=== PATIENT | male | born 1970 | race Caucasian/White ===

== ENCOUNTER 2016-02-10 03:52 | Inpatient (IN) | payer OTHER ==
[2016-02-10] MEDS ORDERED: ASPIRIN 81 MG CHEW PO STA (04:23)
[2016-02-10] MEDS ORDERED: MAG HYDROX/AL HYDROX/SIMETH 30 ML, HYOSCYAMINE ELIXIR 10 ML, CIMETIDINE HCL 300 MG, LID... PO STA ×4 (04:23)
[2016-02-10] MEDS ORDERED: ENOXAPARIN 100 MG/ML SYRINGE SQ STA (04:24)
[2016-02-10] MEDS ORDERED: NITROGLYCERIN SL TABS 0.4 MG TAB SUBLINGUAL STA (04:24)
[2016-02-10] MEDS ORDERED: NITROGLYCERIN OINT 1 INCH/GM PACKET TOPICAL STA (04:25)
--- NOTE | 2016-02-10 04:32 | XR ---
EXAMINATION TYPE: XR chest 1V portable DATE OF EXAM: 02/10/2016 4:28 AM COMPARISON: 04/06/2012 HISTORY: Chest pain TECHNIQUE: Single frontal view of the chest is obtained. FINDINGS: Heart and mediastinum are normal. Lungs are clear. Diaphragm is normal. Bony thorax and so ft tissues appear normal. IMPRESSION: Normal chest. There is improved inspiration compared to last exam.
[2016-02-10 04:34] LABS: Basophils % (A) 0 %; CH 31.3; CHCM 33.7; Eosinophils # (A) 0.3 k/uL (0-0.7); Eosinophils % (A) 2 %; HCT 43.8 % (39.0-53.0); HDW 2.17; HGB 14.7 gm/dL (13.0-17.5); Luc # (Auto) 0.19; Luc % (Auto) 2; Lymphocytes # (A) 2.9 k/uL (1.0-4.8); Lymphocytes % (A) 27 %; MCH 31.2 pg (25.0-35.0); MCHC 33.5 g/dL (31.0-37.0); MCV 93.1 fL (80.0-100.0); Mean Platelet Volume 7.4; Monocytes # (A) 0.8 k/uL (0-1.0); Monocytes % (A) 7 %; Neutrophils # (A) 6.8 k/uL (1.3-7.7); Neutrophils % (A) 62 %; RBC 4.71 m/uL (4.30-5.90); RDW 13.4 % (11.5-15.5); WBC (Perox) 10.74
[2016-02-10 04:49] LABS: ALT 29 U/L (21-72); AST 24 U/L (17-59); Alkaline Phosphatase 65 U/L (38-126); Amylase 57 U/L (30-110); Anion Gap 12 mmol/L; Blood Urea Nitrogen 20 mg/dL (9-20); Calcium 9.8 mg/dL (8.4-10.2); Carbon Dioxide 25 mmol/L (22-30); Chloride 104 mmol/L (98-107); Glucose 136 mg/dL (74-99); Magnesium 1.8 mg/dL (1.6-2.3); Non-African American GFR(MDRD) >60 (>60 ml/min/1.73 sqM); Potassium 4.1 mmol/L (3.5-5.1); Sodium 141 mmol/L (137-145); Total Bilirubin 0.3 mg/dL (0.2-1.3); Total Protein 6.8 g/dL (6.3-8.2)
--- NOTE | 2016-02-10 06:23 | ED ---
[id number] PAIN Time Seen by Provider: 02/10/16 04:01 Source: patient, family, RN notes reviewed Mode of arrival: ambulatory Limitations: no limitations - History of Present Illness Initial Comments: This patient is a 45-year-old man who presents with substernal chest pain that started tonight. Patient states that he had been seen here 2 days ago for similar episode, was admitted and then left AGAINST MEDICAL ADVICE the following afternoon. He reports that while he was here one of his tests come back abnormal but he does not recall which. The patient is describing his pain as being constant, aching, without worsening or relieving factors. MD Complaint: chest pain Onset/Timin -: hour(s) Onset: during rest Pain Location: substernal Pain Radiation: neck Severity: moderate Quality: aching Consistency: constant Improves With: nothing Worsens With: nothing - Related Data Home Medications Medication Instructions Recorded Confirmed No Known Home Medications [No 02/08/16 02/10/16 Known Home Medications] Allergies Allergy/AdvReac Type Severity Reaction Status Date / Time morphine AdvReac Chest Pain Verified 02/10/16 07:13 Review of Systems ROS Statement: Those systems with pertinent positive or pertinent negative responses have been documented in the HPI. ROS Other: All systems not noted in ROS Statement are negative. Constitutional: Denies: fever, chills Respiratory: Denies: cough, dyspnea, wheezes Cardiovascular: Reports: chest pain. Denies: palpitations, edema, syncope Genitourinary: Denies: urgency, dysuria, frequency Musculoskeletal: Denies: back pain Skin: Denies: rash Neurological: Denies: headache, weakness, numbness EKG Findings - EKG Results: EKG: interpreted by ERMD, sinus rhythm (Rate 83 bpm), normal axis, normal QRS, normal ST/T Past Medical History Past Medical History: CVA/TIA, Hypertension Additional Past Medical History / Comment(s): STATES HAD TIA 2 YRS AGO. doctor watching "spot" in his rt lung. DEGENERATIVE DISC DX LUMBAR SPINE,"borderline high BP", hx ulcer History of Any Multi-Drug Resistant Organisms: None Reported Past Surgical History: Hernia Repair Additional Past Surgical History / Comment(s): zion hernia surgery as Past Anesthesia/Blood Transfusion Reactions: No Reported Reaction Past Psychological History: Bipolar, Depression Smoking Status: Current every day smoker Past Alcohol Use History: Rare Additional Past Alcohol Use History / Comment(s): . Past Drug Use History: None Reported - Past Family History Mother Family Medical History: No Reported History General Exam Limitations: no limitations General appearance: alert, in no apparent distress Head exam: Present: atraumatic, normocephalic Eye exam: Present: normal appearance. Absent: scleral icterus, conjunctival injection Neck exam: Present: normal inspection, full ROM Respiratory exam: Present: normal lung sounds bilaterally. Absent: respiratory distress, wheezes, rales, rhonchi, stridor Cardiovascular Exam: Present: regular rate, normal rhythm, normal heart sounds. Absent: systolic murmur, diastolic murmur, rubs, gallop GI/Abdominal exam: Present: soft. Absent: distended, tenderness, guarding, mass Extremities exam: Present: normal inspection, normal capillary refill. Absent: pedal edema, calf tenderness Back exam: Present: normal inspection. Absent: CVA tenderness (R), CVA tenderness (L) Neurological exam: Present: alert Skin exam: Present: warm, dry, intact, normal color. Absent: rash, cyanosis, diaphoretic, erythema, petechiae, pallor, mottled Course Vital Signs 02/10/16 02/10/16 02/10/16 03:55 04:00 04:36 Temperature 98 F Pulse Rate 113 H 98 Pulse Rate [ 85 Right Radial] Respiratory 20 18 Rate Blood Pressure 148/95 135/117 O2 Sat by Pulse 100 98 Oximetry 02/10/16 02/10/16 02/10/16 04:56 05:28 05:59 Temperature Pulse Rate 81 90 85 Pulse Rate [ Right Radial] Respiratory 18 18 18 Rate Blood Pressure 122/80 128/95 124/85 O2 Sat by Pulse 98 98 98 Oximetry 02/10/16 02/10/16 06:45 08:55 Temperature Pulse Rate 59 L 69 Pulse Rate [ Right Radial] Respiratory 18 18 Rate Blood Pressure 109/67 116/76 O2 Sat by Pulse 98 98 Oximetry Chest Pain MDM - MDM Review of the patient's chart reveals that he did have a mild elevation of his troponin last time at 0.5. Given this and the recurrence of his symptoms, with the ER risk factors of smoking, will admit patient to have cardiology consult and stress versus heart cath. Disposition Clinical Impression: Chest pain Disposition: ADMITTED IP TO THIS HOSP Condition: Fair
[2016-02-10] MEDS ORDERED: NITROGLYCERIN SL TABS 0.4 MG TAB SUBLINGUAL PRN ×3 (07:00→17:45)
[2016-02-10] MEDS ORDERED: NICOTINE 21MG/24HR PATCH TRANSDERM STA (07:05)
[2016-02-10] MEDS ORDERED: KETOROLAC 30 MG/ML 1 ML VIAL IVP STA (07:06)
[2016-02-10] MEDS: SODIUM CHLORIDE 0.9% 1,000 ML IV SCH ×2 (08:52→19:14)
[2016-02-10 11:38] LABS: Creatine Kinase MB 5.1 ng/mL (0.0-2.4); Troponin I 0.629 ng/mL (0.000-0.034)
[2016-02-10] MEDS ORDERED: ASPIRIN 325 MG TAB PO STA (13:29)
[2016-02-10] MEDS ORDERED: ALPRAZolam 0.25 MG TAB PO PRN (13:29)
[2016-02-10] MEDS ORDERED: ALPRAZolam 0.5 MG TAB PO PRN (13:29)
[2016-02-10] MEDS ORDERED: ATORVASTATIN 80 MG TAB PO STA (13:29)
[2016-02-10] MEDS ORDERED: SODIUM CHLORIDE 0.9% 1,000 ML in EMPTY BAG 1 BAG IV ONE (13:29)
[2016-02-10] MEDS: METOPROLOL TARTRATE 25 MG TAB PO SCH ×2 (15:46→20:31)
[2016-02-10] MEDS ORDERED: LIDOCAINE 2% INJ 20 MG/ML (20 ML MDV) ONE (16:04)
[2016-02-10] MEDS ORDERED: diphenhydrAMINE 50 MG/ML 1 ML VIAL ONE (16:06)
[2016-02-10] MEDS ORDERED: fentaNYL (PF) 50 MCG/ML 2 ML AMP ONE (16:06)
[2016-02-10] MEDS ORDERED: HEPARIN SODIUM 1,000 UNIT/ML VIAL ONE (16:14)
[2016-02-10] MEDS ORDERED: SODIUM CHLORIDE 0.9% (PF) 10 ML VIAL ONE (16:14)
[2016-02-10] MEDS ORDERED: VERAPAMIL 2.5 MG/ML 2 ML AMP ONE (16:14)
[2016-02-10] MEDS ORDERED: IV FLUID CONTINUATION 100 ML IV ONE (16:20)
[2016-02-10] MEDS ORDERED: diphenhydrAMINE 50 MG/ML 1 ML VIAL IVP ONE (16:24)
[2016-02-10] MEDS ORDERED: fentaNYL (PF) 50 MCG/ML 2 ML AMP IV ONE (16:27)
[2016-02-10] MEDS ORDERED: SODIUM CHLORIDE 0.9% 1,000 ML IV ONE (16:30)
[2016-02-10] MEDS ORDERED: MIDAZOLAM 2 MG/2 ML VIAL ONE (16:35)
[2016-02-10] MEDS ORDERED: MIDAZOLAM 2 MG/2 ML VIAL IV ONE (16:50)
[2016-02-10] MEDS ORDERED: LIDOCAINE 2% INJ 20 MG/ML SQ ONE (16:56)
[2016-02-10] MEDS ORDERED: VERAPAMIL SYRINGE (5 MG/10 ML) INTRAARTER ONE (16:58)
[2016-02-10] MEDS ORDERED: BIVALIRUDIN BOLUS 250 MG/50 ML IV ONE (17:03)
[2016-02-10] MEDS ORDERED: BIVALIRUDIN 250 MG in SODIUM CHLORIDE 0.9% 50 ML IV ONE (17:04)
[2016-02-10] MEDS ORDERED: CLOPIDOGREL 75 MG TAB ONE (17:09)
[2016-02-10] MEDS ORDERED: CLOPIDOGREL 75 MG TAB PO ONE (17:14)
[2016-02-10] MEDS: NITROGLYCERIN 1000MCG/10ML SYRINGE INTRAARTER ONE ×2 (17:14→17:22)
[2016-02-10] MEDS ORDERED: IOHEXOL 300 MG/ML 100 ML BOTTLE INJ ONE (17:30)
[2016-02-10] MEDS ORDERED: MAG HYDROX/AL HYDROX/SIMETH 30 ML CUP PO PRN (17:45)
[2016-02-10] MEDS ORDERED: RX INFO: IV CONTRAST WAS GIVEN 1 EACH MISC MISCELLANE PRN (17:45)
[2016-02-10] MEDS ORDERED: ZOLPIDEM 5 MG TAB PO PRN (17:45)
[2016-02-10] MEDS ORDERED: SODIUM CHLORIDE 0.9% 1,000 ML IV SCH (17:45)
[2016-02-10] MEDS ORDERED: ENOXAPARIN 100 MG/ML SYRINGE SQ SCH (18:00)
[2016-02-10 18:56] LABS: Creatine Kinase MB 6.9 ng/mL (0.0-2.4); Troponin I 1.08 ng/mL (0.000-0.034)
--- NOTE | 2016-02-10 22:54 | CONS ---
DATE OF CONSULTATION: 02/10/2016 Mr. Nina is a 45-year-old male who was admitted to the hospital this past Wednesday with symptoms of chest pain, had mild elevation of troponin. Subsequently patient signed AMA, went home and had another episode of severe chest discomfort yesterday, came into the emergency room and was admitted. He is feeling pain-free at this time. He had discomfort again at rest, not related to any physical activity. He has had mild dyspnea. He has no dizziness. No palpitation. No syncope. He has no history of PND, orthopnea, or peripheral edema. His medications at time of presentation were none. His coronary risk factors are remarkable for the history of smoking. He is nondiabetic. No documented hyperlipidemia. There is a question of hypertension in the past. REVIEW OF SYSTEMS: RESPIRATORY SYSTEM: He has no recent wheezing. He has chronic tobacco use and some dyspnea. GI: No recent GI bleeding. No peptic ulcer disease. SYSTEM: No dysuria or hematuria. NERVOUS SYSTEM: No stroke or seizure. Of note, during his last admission he had an echocardiogram that revealed preserved left ventricular size systolic function and his troponin initially was less than 0.0172, subsequent one was 0.055. On presentation today his first one was less than 0.012 and subsequently 0.629. PHYSICAL EXAMINATION: He is a 45-year-old male, alert, oriented, in no apparent distress. Blood pressure 104/70 with a heart rate in the 60s. HEAD: Normocephalic. EYES: Sclerae anicteric. NECK: Good upstroke. No bruit. No jugular venous distention. LUNGS: Clear to auscultation. HEART: Regular rate and rhythm. S1, S2, no S3, no rub. ABDOMEN: Soft, nontender, positive bowel sounds. No organomegaly. EXTREMITIES: No edema. Intact distal pulses. EKG revealed sinus mechanism, normal axis and intervals. QS in leads III. Lab data revealed a hemoglobin of 14.7, troponin of 0.629. BUN and creatinine 20 and 1.0. IMPRESSION: 1. Non- ST segment elevation myocardial infarction. 2. Chronic tobacco use. RECOMMENDATIONS: In view of the recurrent symptoms of proceed with coronary angiography to assess his status and guide his treatment. The rationale behind the procedure as well as risks and complications were discussed with the patient who is in full understanding and agreement. Thank you for this consult. We will follow with you.
[2016-02-11 03:12] VITALS: RESP 18
[2016-02-11] MEDS: SODIUM CHLORIDE 0.9% 1,000 ML IV SCH ×2 (06:52→12:10)
[2016-02-11 08:04] LABS: Anion Gap 11 mmol/L; Blood Urea Nitrogen 15 mg/dL (9-20); Calcium 8.8 mg/dL (8.4-10.2); Carbon Dioxide 23 mmol/L (22-30); Chloride 108 mmol/L (98-107); Cholesterol 178 mg/dL (<200); Glucose 92 mg/dL (74-99); HDL Cholesterol 37 mg/dL (40-60); Non-African American GFR(MDRD) >60 (>60 ml/min/1.73 sqM); Potassium 4.6 mmol/L (3.5-5.1); Sodium 142 mmol/L (137-145); Triglycerides 106 mg/dL (<150)
[2016-02-11] MEDS: METOPROLOL TARTRATE 25 MG TAB PO SCH (08:20)
[2016-02-11 08:40] LABS: CH 30.3; CHCM 30.6; HCT 43.8 % (39.0-53.0); HDW 2.25; HGB 14.2 gm/dL (13.0-17.5); Hypochromasia Slight; MCH 32.2 pg (25.0-35.0); MCHC 32.4 g/dL (31.0-37.0); Mean Platelet Volume 8.1; RDW 13.6 % (11.5-15.5); WBC 7.6 k/uL (3.8-10.6); WBC (Perox) 8.18
[2016-02-11 08:56] LABS: MCV 99.6 fL (80.0-100.0)
[2016-02-11] MEDS ORDERED: INFLUENZA VACCINE (3YR+) 60 MCG/0.5 ML SYRINGE IM ONE (09:00)
[2016-02-11] MEDS ORDERED: ASPIRIN 325 MG TAB PO SCH ×2 (09:00)
[2016-02-11] MEDS ORDERED: NICOTINE 21MG/24HR PATCH TRANSDERM SCH (09:00)
[2016-02-11 10:39] LABS: Add Differential Manual Differential
[2016-02-11 10:42] LABS: Nucleated Red Blood Cells 0 /100 WBC (0-0); Total Cells Counted 100
--- NOTE | 2016-02-11 11:28 | HP ---
DATE OF ADMISSION: The chief complaint is chest pain. HISTORY OF PRESENT ILLNESS: This 45-year-old gentleman with a past history of nicotine dependence, history of CVA, TIA, hypertension, CAD being followed by Dr. Ken Willis in the outpatient setting, recently admitted with chest pain. The patient was suspected to have acute non-ST elevation myocardial infarction but the patient left the hospital AGAINST MEDICAL ADVICE. Currently, the patient is complaining of chest pain, low part of the chest pain, again, which is radiating into both arms and neck and patient came to [facility], admitted for further evaluation and treatment. The troponin is elevated to 1.080 and patient underwent cardiac catheterization and RCA stenting and patient being closely monitored. There is no history of fever, rigor, or chills. No history of any headache, loss of consciousness or seizures. PAST MEDICAL HISTORY: History of CVA, TIA, hypertension, history of CAD stent, history of hernia repair. MEDICATIONS: None. ALLERGIES: MORPHINE. FAMILY HISTORY: No history of heart disease or strokes in the family. SOCIAL HISTORY: History of smoking, no history of alcohol intake. REVIEW OF SYSTEMS: ENT: No diminished vision or hearing. CARDIOVASCULAR SYSTEM: As mentioned earlier. RESPIRATORY: As mentioned earlier. GI: No nausea. : No dysuria. NERVOUS SYSTEM: No numbness or weakness. ALLERGY/IMMUNOLOGY: No asthma or hay fever. MUSCULOSKELETAL: As mentioned earlier. HEMATOLOGY: No history of anemia. ENDOCRINE: No history of diabetes mellitus or hypothyroidism. CONSTITUTIONAL: As mentioned earlier. DERMATOLOGY: Negative. PSYCHIATRY: As mentioned earlier. PHYSICAL EXAM: Patient is alert and oriented x3. Pulse is 77, blood pressure 117/70, respirations 16, temperature 97.4, pulse ox 96% on room air. HEENT: Conjunctivae normal. NECK: No jugular venous distension. CARDIOVASCULAR SYSTEM: S1, S2. RESPIRATORY: Breath sounds diminished at the bases. No rhonchi, no crackles. Abdomen is soft, nontender. No mass palpable. EXTREMITIES: Legs no edema, no swelling. NERVOUS SYSTEM: Higher function as mentioned earlier. Moves all 4 limbs, no focal motor deficits. LYMPHATICS: No lymph node enlargement in the neck, groin or axillae. SKIN: No ulcer, rash or bleeding. Labs at this time show CBC, WBC 11, troponin as noted. ASSESSMENT: 1. Acute non-ST elevation myocardial infarction, status post cardiac catheterization and stenting of the right coronary artery. 2. Troponin 1.080. 3. Continued ongoing nicotine dependence. 4. Increased random blood sugar. 5. Increased WBC, possibly reactive. 6. History of cerebrovascular accident, transient ischemic attack. 7. Hypertension. 8. History of noncompliance. 10. History of coronary artery disease, stent. 11. History of hernia surgery. 12. Bipolar depression. 13. FULL CODE. RECOMMENDATION: In this 45-year-old gentleman who presented with multiple complex medical issues, will monitor the patient closely, continue with the current medications. Continue with the symptomatic treatment, antiplatelet and beta blockers, Habitrol. Closely follow with Cardiology. Otherwise, will repeat labs in the morning. Guarded prognosis. Further recommendations. for the patient. A copy of this dictation will be forwarded to Dr. Ash who is the primary physician. YULIANA
[2016-02-11 11:47] VITALS: BP 119/79; PULSE 71; TEMP 97.3
--- NOTE | 2016-02-11 11:58 | PTCA ---
DATE OF SERVICE: Mr. Nina is 45-year-old male with no prior documented history of coronary artery disease, who presented with symptoms of chest discomfort and abnormality in his troponins. In view of that, underwent cardiac catheterization, was found to have critical stenosis involving the proximal and mid right coronary artery and recommendation was made regarding angioplasty and stenting. The procedure as well as risks and complications were discussed with the patient who was in full understanding and agreement. PROCEDURE: A 6 Occitan 3-1/2 Bend right Merlyn guiding catheter the system. After cannulating the right coronary ostium, a 0.014 balanced medium weight J-wire was advanced across the lesion, positioned distally, then a 2.25 x 12 mm Trek balloon was advanced and 2 inflations at maximum of 10 atmospheres were done. Following that, the balloon was removed and a 2.25 x 28 mm Xience Alpine stent was deployed, it was dilated at 14 atmospheres. After the last inflation, after appropriate wait, the balloon and the guidewire were withdrawn back in the guiding catheter. Images were obtained and repeated. Those images reveal stable successful stenting. At that point, the guiding catheter, balloon and the guidewire were removed. Sheaths were removed. Hemostasis was obtained with deployment of a TR band. There were no immediate complications. Patient is returned to his room in stable condition. Of note, the patient received Angiomax per protocol as well as oral loading dose of Clopidogrel. He received intra-arterial verapamil at the start of the procedure. He had no chest discomfort or significant EKG changes with the inflation. RESULT: Successful stenting of the long segment of the proximal and mid right coronary artery with reduction in stenosis from 99% to 0%. RECOMMENDATION: Patient will be continued aspirin, Plavix, beta tanna and statin. The importance of dual antiplatelet treatment were discussed with the patient and his family and are in full understanding and agreement.
--- NOTE | 2016-02-11 12:04 | LTR ---
February 10, 2016 RE: MaicoMooseTrevin Alan Dear Dr. Ash: I had the pleasure of performing coronary angioplasty and stenting on Mr. Nina at [facility] on the february. A full copy of procedure note will be forwarded to you. In brief, he was found to have critical stenosis involving the mid and proximal right coronary artery. Underwent successful stenting of that vessel using a drug-eluting stent. I would recommend continued to antiplatelet treatment without interruption for at least one year. Thank you again for allowing me to participate in his care. Please feel free to call for any questions. Sincerely, YINKA CHAMPION MD
--- NOTE | 2016-02-11 12:25 | CC ---
DATE OF SERVICE: Mr. Nina is a 45-year-old male with a history of chronic tobacco use, who presented with symptoms of chest discomfort, had mild elevation of troponin consistent with non-ST segment elevation myocardial infarction. In view of that, recommendation made regarding cardiac catheterization. The procedure as well as risks and complications were discussed with the patient who is in full understanding and agreement. PROCEDURE: Patient was brought to the crime lab analyst in fasting semisedated state after receiving fentanyl and Benadryl. He was draped and prepped in conventional fashion. Using Xylocaine anesthesia and Seldinger technique, a 6 Burmese sheath was introduced in the right radial artery. Selective right and left coronary angiography was performed using 5 Burmese 3-1/2 Bend right and left Merlyn catheter. Multiple views of the coronary artery including hemiaxial views obtained. Following that, a 5 Burmese tight pigtail catheter was introduced into the left ventricle and a 30-degree HERNANDEZ view of the left ventricle was obtained. Following that, catheter was removed. Images were reviewed. FINDINGS: LEFT MAIN: This is a short-sized vessel bifurcating into left circumflex and left anterior descending artery. Left main coronary artery is without any significant obstructive coronary artery disease. LEFT ANTERIOR DESCENDING ARTERY: This is a large-size vessel reaching towards the apex with a wrap around the apex segment, giving rise to 2 diagonal branches. The left anterior descending artery in the midsegment has 10% to 20% plaque without any evidence of high-grade stenosis. LEFT CIRCUMFLEX: This is a nondominant large vessel, giving rise to a proximal obtuse marginal branch distally bifurcating into the distal obtuse marginal branch. The left circumflex has mild intimal disease in the mid and proximal segment of 10% to 20% without any evidence of high-grade stenosis. RIGHT CORONARY ARTERY: This is a dominant vessel, small in caliber bifurcating into PDA and a small PLV. The right coronary artery in the proximal segment has a plaque of about 60% in the mid segment prior to the takeoff of the acute marginal, has a 99% stenosis. The rest of the vessel has no high-grade stenosis. LEFT VENTRICULOGRAM: Left ventriculogram was performed in 30-degree HERNANDEZ view and revealed a normal size and systolic function. Ejection fraction 60%. There was no significant mitral regurgitation. HEMODYNAMICS: There was no gradient across the aortic valve. The left ventricle end-diastolic pressure was 10 to 12 mmHg. CONCLUSION: 1. Critical stenosis involving the proximal and mid right coronary artery. 2. Mild disease in the left circumflex and mid left anterior descending. 3. Normal left ventricular size and systolic function. RECOMMENDATIONS: In view of the findings and the anatomy, I recommend proceeding with coronary angioplasty and stenting of the RCA. The rationale behind the procedure as well as risks and complications were discussed with the patient who is in full understanding and agreement.
--- NOTE | 2016-02-11 14:06 | PN ---
Mr. Nina is a 45-year-old male who presented with symptoms of chest discomfort and non- ST segment elevation infarction, underwent cardiac catheterization yesterday and stenting of the right coronary artery. He is doing well today, ambulating without difficulty. Denying chest pain. No dizziness. No palpitation. Denies any nausea. Continues to be on aspirin once a day, Lipitor 80 mg daily, Plavix 75 mg daily, metoprolol tartrate 25 mg twice a day and nicotine patch. PHYSICAL EXAMINATION: Blood pressure 112/60 with a heart rate in the 70s. LUNGS: Clear. HEART: Regular rate rhythm. S1, S2, no S3, no rub. ABDOMEN: Soft, nontender. Right radial pulse intact. EKG revealed minimal T-wave inversion inferiorly. IMPRESSION: 1. Non- ST segment elevation myocardial infarction and stenting of the right coronary artery. 2. History of chronic tobacco use. RECOMMENDATIONS: Patient will be discharged home today and followed as an outpatient. The importance of smoking cessation as well as dual antiplatelet treatment was discussed with the patient.
[2016-02-11] MEDS ORDERED: CLOPIDOGREL 75 MG TAB PO SCH (15:00)
--- NOTE | 2016-02-11 15:07 | P.PN ---
Subjective Principal diagnosis: Non-Q-wave WA This is a 45-year-old gentleman who presented to the hospital with a non-Q-wave myocardial infarction. He underwent angioplasty with stent placement of the right coronary artery. Patient was seen and examined this morning, denies any chest pain or difficulty in breathing. EKG showed normal sinus rhythm with no changes from post-PCI. Objective - Vital Signs Vital signs: Vital Signs Temp 97.3 F L 02/11/16 13:00 Pulse 71 02/11/16 13:00 Resp 18 02/11/16 13:00 BP 119/79 02/11/16 13:00 Pulse Ox 99 02/11/16 13:00 Intake & Output 02/10/16 02/11/16 02/11/16 18:59 06:59 18:59 Intake Total 577 1000 420 Output Total 300 Balance 577 700 420 Weight 88.4 kg Intake: IV 337 1000 Sodium Chloride 0.9% 1, 1000 000 ml @ 100 mls/hr IV . Q10H NOHEMY Rx#:[id number] Oral 240 420 Output: Urine 300 Other: Voiding Method Urinal Toilet Toilet # Voids 2 0 # Bowel Movements 0 - Exam PHYSICAL EXAMINATION: HEENT: Head is atraumatic, normocephalic. Pupils equal, round. Neck is supple. There is no elevated jugular venous pressure. HEART EXAMINATION: Heart S1, S2 normal. No murmur or gallop heard. CHEST EXAMINATION: Lungs are clear to auscultation and precussion. No chest wall tenderness is noted on palpation or with deep breathing. ABDOMEN: Soft, nontender. Bowel sounds are heard. No organomegaly noted. EXTREMITIES: 2+ peripheral pulses with no evidence of peripheral edema and no calf tenderness noted. Right radial site clean and dry, good distal pulse. NEUROLOGIC patient is awake, alert and oriented -3. . - Labs CBC & Chem 7: 02/11/16 06:37 02/11/16 06:37 Labs: Abnormal Lab Results - Last 24 Hours (Table) 02/10/16 02/11/16 Range/Units 18:01 06:37 Chloride 108 H (98-107) mmol/L CK-MB (CK-2) 6.9 H* (0.0-2.4) ng/mL Troponin I 1.080 H* (0.000-0.034) ng/mL LDL Cholesterol, Calc 120 H (0-99) mg/dL HDL Cholesterol 37 L (40-60) mg/dL Assessment and Plan (1) Non-Q wave infarction Status: Acute (2) S/P right coronary artery (RCA) stent placement Status: Acute Plan: From cardiology's perspective, patient should be able to be discharged home today. We will make him a follow-up appointment to see Dr. Moore in the office post discharge. He will be discharged home on aspirin daily, Lipitor 80 daily, Plavix 75 mg daily, metoprolol tartrate 25 mg one tablet by mouth twice a day, nicotine patch, and sublingual nitroglycerin as needed for chest pain. Patient has been educated regarding these medications and he has been provided prescriptions as well. DNP note has been reviewed, I agree with a documented findings and plan of care. Patient was seen and examined.
[2016-02-11] MEDS ORDERED: ATORVASTATIN 80 MG TAB PO SCH (21:00)
--- NOTE | 2016-02-12 17:17 | DS ---
DATE OF ADMISSION: 02/10/2016 DATE OF DISCHARGE: 02/11/2016 FINAL DIAGNOSES: 1. Acute non-ST elevation myocardial infarction status post cardiac catheterization with stenting of the right coronary artery. 2. Troponin 1.080. 3. Continued ongoing nicotine dependence. 4. Increased random blood sugar. 5. Increased WBC, possibly reactive. 6. History of cerebrovascular accident, transient ischemic attack. 7. Hypertension. 8. History of noncompliance. 9. History of coronary artery disease and stent. 10. History of hernia surgery. 11. Bipolar depression. 12. FULL CODE. DISCHARGE DISPOSITION: The patient will be discharged in a stable condition with guarded prognosis. Discharge cleared by cardiology. HISTORY OF PRESENT ILLNESS: This 45-year-old gentleman with a past medical history of multiple medical problems being followed by Dr. Ash in the outpatient setting, admitted to the hospital with chest pain, had features of acute non-ST segment elevated myocardial infarction. Cardiology performed cardiac catheterization and as well as stenting of the long segment of proximal and mid RCA with reduction in stenosis from 99% to 0%. The patient improved significantly. On exam, vitals are stable. CARDIOVASCULAR: S1, S2. ABDOMEN: Soft. Nervous system: No focal deficits. The patient is recommended smoking cessation. DISCHARGE ADVICE AND MEDICATIONS: 1. Diet is cardiac. 2. Activity limited until follow-up. 3. Follow-up with Dr. Moore as advised. 4. Follow-up with Dr. Ash in 2 to 3 days. 5. Aspirin 320 mg p.o. daily. 6. Lipitor 80 mg q.h.s. 7. Plavix 75 milligrams p.o. daily. 8. Metoprolol 25 mg p.o. b.i.d. 9. Habitrol 21 daily. 10. Nitrostat 0.4 sublingual p.r.n. Once again, the patient will be discharged in a stable condition with guarded prognosis.
== END 2016-02-11 15:00 | disposition home or self-care (01) | DRG 247 ==
LOC: EC 03:52 → 3OBS 07:01 → OBSVTOIN 07:01 → 6SEL 11:54
PROVIDERS: ADMIT Hospitalist; ATTEND Hospitalist
PROC: 027034Z Dilation of Coronary Artery, One Artery with Drug-eluting Intraluminal Device, Percutaneous Approach (ICD-10-PCS; principal; 2016-02-10 16:00)
PROC: B2111ZZ Fluoroscopy of Multiple Coronary Arteries using Low Osmolar Contrast (ICD-10-PCS; principal; 2016-02-10 16:00)
PROC: B2151ZZ Fluoroscopy of Left Heart using Low Osmolar Contrast (ICD-10-PCS; principal; 2016-02-10 16:00)
PROC: 4A023N7 Measurement of Cardiac Sampling and Pressure, Left Heart, Percutaneous Approach (ICD-10-PCS; principal; 2016-02-10 16:00)
DX: I21.4 Non-ST elevation (NSTEMI) myocardial infarction (principal); I10 Essential (primary) hypertension; F17.200 Nicotine dependence, unspecified, uncomplicated; M51.36 Other intervertebral disc degeneration, lumbar region; F31.9 Bipolar disorder, unspecified; Z91.19 Patient's noncompliance with other medical treatment and regimen; Z86.73 Personal history of transient ischemic attack (TIA), and cerebral infarction without residual deficits; I25.10 Atherosclerotic heart disease of native coronary artery without angina pectoris; Z79.02 Long term (current) use of antithrombotics/antiplatelets; Z88.5 Allergy status to narcotic agent
CPT/HCPCS: 36415; 71010; 80048; 80053; 80061; 82150; 82550; 82553; 83690; 83735; 84484; 85025; 85347; 85379; 90686; 93005; 93458; 96361; 96372; 96374; 99285

== ENCOUNTER → 2016-04-23 | Outpatient (CLI) | payer OTHER ==
[2016-04-23 11:33] LABS: ALT 46 U/L (21-72); AST 31 U/L (17-59); Alkaline Phosphatase 68 U/L (38-126); Anion Gap 8 mmol/L; Blood Urea Nitrogen 16 mg/dL (9-20); Calcium 9.5 mg/dL (8.4-10.2); Carbon Dioxide 27 mmol/L (22-30); Chloride 108 mmol/L (98-107); Cholesterol 135 mg/dL (<200); Glucose 92 mg/dL (74-99); HDL Cholesterol 43 mg/dL (40-60); Non-African American GFR(MDRD) >60 (>60 ml/min/1.73 sqM); Potassium 4.3 mmol/L (3.5-5.1); Sodium 143 mmol/L (137-145); Total Bilirubin 0.4 mg/dL (0.2-1.3); Total Protein 6.9 g/dL (6.3-8.2); Triglycerides 99 mg/dL (<150)
== END | disposition home or self-care (01) ==
LOC: LABWHC1 10:47
PROVIDERS: ATTEND Internal Medicine Interventional Cardiology
DX: E78.2 Mixed hyperlipidemia (principal)
CPT/HCPCS: 36415; 80053; 80061

== ENCOUNTER 2016-04-30 22:23 | Emergency (ER) | payer OTHER ==
[2016-04-30 22:31] VITALS: RESP 16; TEMP 97.5
[2016-04-30 23:03] LABS: Basophils % (A) 1 %; CH 31.8; CHCM 33.6; Eosinophils # (A) 0.1 k/uL (0-0.7); Eosinophils % (A) 2 %; HCT 43.6 % (39.0-53.0); HDW 2.21; HGB 14.6 gm/dL (13.0-17.5); Luc # (Auto) 0.25; Luc % (Auto) 3; Lymphocytes # (A) 1.9 k/uL (1.0-4.8); Lymphocytes % (A) 20 %; MCH 31.8 pg (25.0-35.0); MCHC 33.5 g/dL (31.0-37.0); MCV 94.9 fL (80.0-100.0); Mean Platelet Volume 8.3; Monocytes # (A) 0.6 k/uL (0-1.0); Monocytes % (A) 7 %; Neutrophils # (A) 6.3 k/uL (1.3-7.7); Neutrophils % (A) 69 %; RBC 4.59 m/uL (4.30-5.90); RDW 13.5 % (11.5-15.5); WBC 9.2 k/uL (3.8-10.6); WBC (Perox) 8.98
--- NOTE | 2016-04-30 23:04 | XR ---
EXAMINATION TYPE: XR chest 2V DATE OF EXAM: 04/30/2016 11:01 PM COMPARISON: 02/10/2016 HISTORY: Chest pain TECHNIQUE: Frontal and lateral views of the chest are obtained. FINDINGS: Heart and mediastinum are normal. Lungs are clear. Diaphragm is normal. Bony thorax is int act. There are chest leads. IMPRESSION: Normal chest. No change.
[2016-04-30 23:11] LABS: INR 1.1 (<1.1); Partial Thromboplastin Time 26.3 sec (22.0-30.0); Prothrombin Time 10.9 sec (9.0-12.0)
[2016-04-30 23:14] LABS: ALT 45 U/L (21-72); AST 37 U/L (17-59); Alkaline Phosphatase 75 U/L (38-126); Anion Gap 11 mmol/L; Blood Urea Nitrogen 12 mg/dL (9-20); Calcium 9.9 mg/dL (8.4-10.2); Carbon Dioxide 27 mmol/L (22-30); Chloride 101 mmol/L (98-107); Glucose 94 mg/dL (74-99); Non-African American GFR(MDRD) >60 (>60 ml/min/1.73 sqM); Sodium 139 mmol/L (137-145); Total Bilirubin 0.7 mg/dL (0.2-1.3); Total Protein 7.6 g/dL (6.3-8.2)
[2016-04-30 23:26] LABS: Creatine Kinase 194 U/L (55-170)
[2016-04-30 23:39] LABS: Creatine Kinase MB 1.7 ng/mL (0.0-2.4); Troponin I <0.012 ng/mL (0.000-0.034)
--- NOTE | 2016-05-01 00:16 | ED ---
Chest Pain HPI - General Chief Complaint: Chest Pain Stated Complaint: Chest Pain Time Seen by Provider: 04/30/16 22:40 Source: patient Mode of arrival: wheelchair Limitations: no limitations - History of Present Illness Initial Comments: S pain ongoing for the last 3 weeks it's worse today he stated that he has not been taken his aspirin and Plavix for the last several weeks and is also complaining about shortness of breath and stating that the deep deep breaths make the pain worse. Denies any fever no chills no headaches no neck neck stiffness no abdominal pain no frequency urgency dysuria no sinus symptoms of TIA or CVA he had a stent placed 1 within the last few months - Related Data Home Medications Medication Instructions Recorded Confirmed Aspirin 325 mg PO HS 04/30/16 04/30/16 Clopidogrel [Plavix] 75 mg PO HS 04/30/16 04/30/16 Previous Rx's Medication Instructions Recorded Atorvastatin [Lipitor] 80 mg PO HS #90 tab 02/11/16 Metoprolol Tartrate [Lopressor] 25 mg PO BID #180 tab 02/11/16 Nicotine 21Mg/24Hr Patch [Habitrol] 1 patch TRANSDERM DAILY #30 patch 02/11/16 Nitroglycerin Sl Tabs [Nitrostat] 0.4 mg SUBLINGUAL Q5M PRN #25 tab 02/11/16 Allergies Allergy/AdvReac Type Severity Reaction Status Date / Time morphine AdvReac Chest Pain Verified 04/30/16 23:24 Review of Systems ROS Statement: Those systems with pertinent positive or pertinent negative responses have been documented in the HPI. ROS Other: All systems not noted in ROS Statement are negative. EKG Findings - EKG Comments: EKG Findings:: EKG is normal sinus rhythm ventricular rate is 62 NM interval is 150. QRS duration is 82 QT/QTc is 4/413 review of this EKG does not reveal any ST elevation or ST depression Past Medical History Past Medical History: CVA/TIA, Hypertension Additional Past Medical History / Comment(s): STATES HAD TIA 2 YRS AGO. doctor watching "spot" in his rt lung. DEGENERATIVE DISC DX LUMBAR SPINE, hx ulcer History of Any Multi-Drug Resistant Organisms: None Reported Past Surgical History: Heart Catheterization With Stent, Hernia Repair Additional Past Surgical History / Comment(s): zion hernia surgery as , PROXIMAL RCA STENT Past Anesthesia/Blood Transfusion Reactions: No Reported Reaction Date of Last Stent Placement:: 02/10/2016 Past Psychological History: Bipolar, Depression Smoking Status: Current every day smoker Past Alcohol Use History: Rare Additional Past Alcohol Use History / Comment(s): . Past Drug Use History: None Reported - Past Family History Mother Family Medical History: No Reported History General Exam - General Exam Comments Initial Comments: General: The patient is awake and alert, in no distress, and does not appear acutely ill. Skin: Skin is warm and dry and no rashes or lesions are noted. Eye: Pupils are equal, round and reactive to light, extra-ocular movements are intact; there is normal conjunctiva bilaterally. Ears, nose, mouth and throat: There are moist mucous membranes and no oral lesions. Neck: The neck is supple, there is no tenderness or JVD. Cardiovascular: There is a regular rate and rhythm. No murmur, rub or gallop is appreciated. Respiratory: To auscultation bilateral, no wheezing no rhonchi no distress respiratory rader noticed Gastrointestinal: Soft, non-distended, non-tender abdomen without masses or organomegaly noted. There is no rebound or guarding present. Bowel sounds are unremarkable. Back: There is no tenderness to palpation in the midline. There is no obvious deformity. Musculoskeletal: Normal ROM, no tenderness, There is no pedal edema. There is no calf tenderness or swelling. No cords were appreciated. Neurological: CN II-XII intact, Cranial nerves III through XII are intact. There are no obvious motor or sensory deficits. Coordination appears grossly intact. Speech is normal. Psychiatric: Cooperative, appropriate mood & affect, normal judgment. Limitations: no limitations Course Vital Signs 04/30/16 04/30/16 04/30/16 22:26 23:06 23:36 Temperature 97.5 F L Pulse Rate 71 66 64 Respiratory 16 16 16 Rate Blood Pressure 131/84 162/98 198/108 O2 Sat by Pulse 100 100 100 Oximetry 05/01/16 05/01/16 05/01/16 00:36 01:06 01:54 Temperature Pulse Rate 62 74 75 Respiratory 16 16 16 Rate Blood Pressure 155/91 189/105 163/109 O2 Sat by Pulse 100 99 100 Oximetry She was reassessed 3 times last time was 2 AM, a CBC, compressive metabolic panel, INR, troponin, d-dimer, chest x-ray are all negative he still have a bit of a chest discomfort considering his known history of heart disease and now multiple other risk factors I advised him a monitored bed admission with heparinization and now for see cardiology in the morning he opted to leave the facility AGAINST MEDICAL ADVICE and promise they'll come back if symptoms get worse the left AMA around 2:10 AM Disposition Clinical Impression: Chest pain Disposition: Left Against Medical Advice Condition: Good Referrals: Ken Willis DO [Primary Care Provider] - 1-2 days
[2016-05-01 02:29] VITALS: BP 189/108; PULSE 62
== END 2016-05-01 02:10 | disposition left against medical advice (07) ==
LOC: EC 22:23
DX: R07.9 Chest pain, unspecified (principal); R06.02 Shortness of breath; I10 Essential (primary) hypertension; I25.10 Atherosclerotic heart disease of native coronary artery without angina pectoris; F17.200 Nicotine dependence, unspecified, uncomplicated; Z95.5 Presence of coronary angioplasty implant and graft; Z79.82 Long term (current) use of aspirin; Z79.02 Long term (current) use of antithrombotics/antiplatelets; Z79.899 Other long term (current) drug therapy; Z86.73 Personal history of transient ischemic attack (TIA), and cerebral infarction without residual deficits
CPT/HCPCS: 36415; 71020; 80053; 82550; 82553; 83735; 84484; 85025; 85379; 85610; 85730; 93005; 99285

== ENCOUNTER 2017-04-14 20:45 | Emergency (ER) | payer OTHER ==
[2017-04-14] MEDS ORDERED: NITROGLYCERIN SL TABS 0.4 MG TAB SUBLINGUAL PRN (20:49)
[2017-04-14] MEDS ORDERED: SODIUM CHLORIDE 0.9% 1,000 ML IV STA (20:49)
[2017-04-14] MEDS ORDERED: HEPARIN SODIUM,PORCINE 5,000 UNIT/ML 1 ML VIAL IV PRN (20:49)
[2017-04-14] MEDS ORDERED: ASPIRIN 81 MG PO STA (20:49)
[2017-04-14] MEDS ORDERED: HEPARIN SODIUM,PORCINE 5,000 UNIT/ML 1 ML VIAL IV ONE (20:49)
[2017-04-14] MEDS ORDERED: SODIUM CHLORIDE 0.9% 500 ML IV STA (20:49)
[2017-04-14 20:54] VITALS: RESP 18; TEMP 98.8
--- NOTE | 2017-04-14 20:58 | ED ---
General Adult HPI - General Source: patient, RN notes reviewed, old records reviewed Mode of arrival: ambulatory Limitations: no limitations <Bakari Harley - Last Filed: 04/14/17 22:39> <Addison Dill - Last Filed: 04/15/17 00:59> - General Chief complaint: Chest Pain Stated complaint: Chest Pain/Light Headed - Hx Heart Attack Time Seen by Provider: 04/14/17 20:49 - History of Present Illness Initial comments: This is a 46-year-old male to the ER for evaluation of chest pain. Patient has history of heart disease history of prior SC with significant cardiac disease. ( Bakari Harley) - Related Data Home Medications Medication Instructions Recorded Confirmed Aspirin 325 mg PO HS 04/30/16 04/14/17 Clopidogrel [Plavix] 75 mg PO HS 04/30/16 04/14/17 Previous Rx's Medication Instructions Recorded Atorvastatin [Lipitor] 80 mg PO HS #90 tab 02/11/16 Metoprolol Tartrate [Lopressor] 25 mg PO BID #180 tab 02/11/16 Nitroglycerin Sl Tabs [Nitrostat] 0.4 mg SUBLINGUAL Q5M PRN #25 tab 02/11/16 Allergies Allergy/AdvReac Type Severity Reaction Status Date / Time morphine AdvReac Chest Pain Verified 04/14/17 21:04 Review of Systems ROS Other: All systems not noted in ROS Statement are negative. <Bakari Harley - Last Filed: 04/14/17 22:39> ROS Other: All systems not noted in ROS Statement are negative. <Addison Dill - Last Filed: 04/15/17 00:59> ROS Statement: Those systems with pertinent positive or pertinent negative responses have been documented in the HPI. Past Medical History Past Medical History: CVA/TIA, Hypertension, Myocardial Infarction ([place]) Additional Past Medical History / Comment(s): STATES HAD TIA 2 YRS AGO. doctor watching "spot" in his rt lung. DEGENERATIVE DISC DX LUMBAR SPINE, hx ulcer History of Any Multi-Drug Resistant Organisms: None Reported Past Surgical History: Heart Catheterization With Stent, Hernia Repair Additional Past Surgical History / Comment(s): zion hernia surgery as , PROXIMAL RCA STENT Past Anesthesia/Blood Transfusion Reactions: No Reported Reaction Date of Last Stent Placement:: 02/10/2016 Past Psychological History: Bipolar, Depression Smoking Status: Current every day smoker Past Alcohol Use History: Rare Past Drug Use History: None Reported - Past Family History Mother Family Medical History: No Reported History <Bakari Harley - Last Filed: 04/14/17 22:39> General Exam Limitations: no limitations General appearance: alert, in no apparent distress Head exam: Present: atraumatic, normocephalic, normal inspection Eye exam: Present: normal appearance, PERRL, EOMI. Absent: scleral icterus, conjunctival injection, periorbital swelling ENT exam: Present: normal exam, mucous membranes moist Neck exam: Present: normal inspection. Absent: tenderness, meningismus, lymphadenopathy Respiratory exam: Present: normal lung sounds bilaterally. Absent: respiratory distress, wheezes, rales, rhonchi, stridor Cardiovascular Exam: Present: regular rate, normal rhythm, normal heart sounds. Absent: systolic murmur, diastolic murmur, rubs, gallop, clicks GI/Abdominal exam: Present: soft, normal bowel sounds. Absent: distended, tenderness, guarding, rebound, rigid Extremities exam: Present: normal inspection, full ROM, normal capillary refill. Absent: tenderness, pedal edema, joint swelling, calf tenderness Back exam: Present: normal inspection Neurological exam: Present: alert, oriented X3, CN II-XII intact Psychiatric exam: Present: normal affect, normal mood Skin exam: Present: warm, dry, intact, normal color. Absent: rash <Bkaari Harley - Last Filed: 04/14/17 22:39> Course <Bakari Harley - Last Filed: 04/14/17 22:39> <Addison Dill - Last Filed: 04/15/17 00:59> Vital Signs 04/14/17 04/14/17 04/14/17 20:52 22:02 23:07 Temperature 98.8 F Pulse Rate 75 57 L 64 Respiratory 18 18 18 Rate Blood Pressure 121/80 105/68 130/83 O2 Sat by Pulse 99 98 100 Oximetry - Reevaluation(s) Reevaluation #1: 04/14/17 20:58 Cardiac cath from a year ago is reviewed with positive findings (Bakari Harley) EKG Findings - EKG Comments: EKG Findings:: EKG shows normal sinus rhythm rate of 75, [place] 160, QRS 76, QTc 396 <Bakari Harley - Last Filed: 04/14/17 22:39> Medical Decision Making - Lab Data Result diagrams: 04/14/17 20:56 04/14/17 20:56 <Bakari Harley - Last Filed: 04/14/17 22:39> - Lab Data Result diagrams: 04/14/17 20:56 04/14/17 20:56 <Addison Dill - Last Filed: 04/15/17 00:59> - Medical Decision Making I was asked to enter the discharge instructions for this patient, no other interaction. (Addison Dill) - Lab Data Lab Results 04/14/17 04/14/17 04/14/17 Range/Units 20:56 20:56 20:56 WBC 11.9 H (3.8-10.6) k/uL RBC 4.80 (4.30-5.90) m/uL Hgb 15.2 (13.0-17.5) gm/dL Hct 43.5 (39.0-53.0) % MCV 90.7 (80.0-100.0) fL MCH 31.6 (25.0-35.0) pg MCHC 34.9 (31.0-37.0) g/dL RDW 13.0 (11.5-15.5) % Plt Count 251 (150-450) k/uL Neutrophils % 66 % Lymphocytes % 24 % Monocytes % 7 % Eosinophils % 2 % Basophils % 1 % Neutrophils # 7.8 H (1.3-7.7) k/uL Lymphocytes # 2.8 (1.0-4.8) k/uL Monocytes # 0.9 (0-1.0) k/uL Eosinophils # 0.2 (0-0.7) k/uL Basophils # 0.1 (0-0.2) k/uL PT (9.0-12.0) sec INR (<1.2) APTT (22.0-30.0) sec D-Dimer (<0.60) mg/L FEU Sodium 141 (137-145) mmol/L Potassium 4.5 (3.5-5.1) mmol/L Chloride 103 (98-107) mmol/L Carbon Dioxide 30 (22-30) mmol/L Anion Gap 8 mmol/L BUN 22 H (9-20) mg/dL Creatinine 1.07 (0.66-1.25) mg/dL Est GFR (CKD-EPI)AfAm >90 (>60 ml/min/1.73 sqM) Est GFR (CKD-EPI)NonAf 84 (>60 ml/min/1.73 sqM) Glucose 84 (74-99) mg/dL Calcium 9.8 (8.4-10.2) mg/dL Magnesium 2.0 (1.6-2.3) mg/dL Total Bilirubin 0.3 (0.2-1.3) mg/dL AST 24 (17-59) U/L ALT 35 (21-72) U/L Alkaline Phosphatase 66 (38-126) U/L Total Creatine Kinase 98 (55-170) U/L CK-MB (CK-2) 0.7 (0.0-2.4) ng/mL CK-MB (CK-2) Rel Index 0.7 Troponin I <0.012 (0.000-0.034) ng/mL Total Protein 7.1 (6.3-8.2) g/dL Albumin 4.1 (3.5-5.0) g/dL 04/14/17 04/14/17 Range/Units 20:56 23:55 WBC (3.8-10.6) k/uL RBC (4.30-5.90) m/uL Hgb (13.0-17.5) gm/dL Hct (39.0-53.0) % MCV (80.0-100.0) fL MCH (25.0-35.0) pg MCHC (31.0-37.0) g/dL RDW (11.5-15.5) % Plt Count (150-450) k/uL Neutrophils % % Lymphocytes % % Monocytes % % Eosinophils % % Basophils % % Neutrophils # (1.3-7.7) k/uL Lymphocytes # (1.0-4.8) k/uL Monocytes # (0-1.0) k/uL Eosinophils # (0-0.7) k/uL Basophils # (0-0.2) k/uL PT 10.2 (9.0-12.0) sec INR 1.0 (<1.2) APTT 25.1 (22.0-30.0) sec D-Dimer 0.25 (<0.60) mg/L FEU Sodium (137-145) mmol/L Potassium (3.5-5.1) mmol/L Chloride (98-107) mmol/L Carbon Dioxide (22-30) mmol/L Anion Gap mmol/L BUN (9-20) mg/dL Creatinine (0.66-1.25) mg/dL Est GFR (CKD-EPI)AfAm (>60 ml/min/1.73 sqM) Est GFR (CKD-EPI)NonAf (>60 ml/min/1.73 sqM) Glucose (74-99) mg/dL Calcium (8.4-10.2) mg/dL Magnesium (1.6-2.3) mg/dL Total Bilirubin (0.2-1.3) mg/dL AST (17-59) U/L ALT (21-72) U/L Alkaline Phosphatase (38-126) U/L Total Creatine Kinase (55-170) U/L CK-MB (CK-2) (0.0-2.4) ng/mL CK-MB (CK-2) Rel Index Troponin I <0.012 (0.000-0.034) ng/mL Total Protein (6.3-8.2) g/dL Albumin (3.5-5.0) g/dL Critical Care Time Critical Care Time: Yes Total Critical Care Time: 31 <Bakari Harley - Last Filed: 04/14/17 22:39> Disposition <Bakari Harley - Last Filed: 04/14/17 22:39> <Addison Dill - Last Filed: 04/15/17 00:59> Clinical Impression: Chest pain, Unstable angina pectoris Disposition: HOME SELF-CARE Condition: Undetermined Instructions: Angina (ED) Referrals: Ken Willis DO [Primary Care Provider] - 1-2 days
[2017-04-14] MEDS ORDERED: HEPARIN SOD,PORK IN 0.45% NACL 25,000 UNIT in 0.45% NACL 1 500ML.BAG IV SCH (21:00)
[2017-04-14] MEDS ORDERED: METOPROLOL TARTRATE 25 MG TAB PO SCH (21:00)
[2017-04-14 21:14] LABS: Basophils # (A) 0.1 k/uL (0-0.2); Basophils % (A) 1 %; Eosinophils # (A) 0.2 k/uL (0-0.7); Eosinophils % (A) 2 %; HCT 43.5 % (39.0-53.0); HGB 15.2 gm/dL (13.0-17.5); Lymphocytes # (A) 2.8 k/uL (1.0-4.8); Lymphocytes % (A) 24 %; MCH 31.6 pg (25.0-35.0); MCHC 34.9 g/dL (31.0-37.0); MCV 90.7 fL (80.0-100.0); Mean Platelet Volume 7.2; Monocytes # (A) 0.9 k/uL (0-1.0); Monocytes % (A) 7 %; Neutrophils # (A) 7.8 k/uL (1.3-7.7); Neutrophils % (A) 66 %; Platelet Count 251 k/uL (150-450); WBC 11.9 k/uL (3.8-10.6)
--- NOTE | 2017-04-14 21:25 | XR ---
EXAMINATION TYPE: XR chest 2V DATE OF EXAM: 04/14/2017 COMPARISON: Prior chest x-ray April 30, 2016. HISTORY: History of 2 heart attacks with coronary stents presents with chest pain. TECHNIQUE: Frontal and lateral views of the chest are obtained. FINDINGS: There is no focal air space opacity, pleural effusion, or pneumothorax seen. The cardiac silhouette size is within normal limits. A coronary stent is redemonstrated on lateral view. The osse ous structures are intact. IMPRESSION: No suspicious acute pulmonary process. No significant change from comparison chest x-ray .
[2017-04-14 21:29] LABS: ALT 35 U/L (21-72); AST 24 U/L (17-59); Albumin 4.1 g/dL (3.5-5.0); Alkaline Phosphatase 66 U/L (38-126); Anion Gap 8 mmol/L; Blood Urea Nitrogen 22 mg/dL (9-20); Calcium 9.8 mg/dL (8.4-10.2); Carbon Dioxide 30 mmol/L (22-30); Chloride 103 mmol/L (98-107); Creatine Kinase 98 U/L (55-170); D-Dimer 0.25 mg/L FEU (<0.60); Glucose 84 mg/dL (74-99); Potassium 4.5 mmol/L (3.5-5.1); Sodium 141 mmol/L (137-145); Total Bilirubin 0.3 mg/dL (0.2-1.3); Total Protein 7.1 g/dL (6.3-8.2)
[2017-04-14 21:34] LABS: Partial Thromboplastin Time 25.1 sec (22.0-30.0)
[2017-04-14 21:36] LABS: Prothrombin Time 10.2 sec (9.0-12.0)
[2017-04-14 21:40] LABS: Creatine Kinase MB 0.7 ng/mL (0.0-2.4); Troponin I <0.012 ng/mL (0.000-0.034)
[2017-04-15 01:08] VITALS: BP 119/81; PULSE 99
[2017-04-15] MEDS ORDERED: ATORVASTATIN 80 MG TAB PO SCH (09:00)
[2017-04-15] MEDS ORDERED: ASPIRIN 325 MG TAB PO SCH (09:00)
== END 2017-04-15 01:06 | disposition home or self-care (01) ==
LOC: EC 20:45
DX: I20.0 Unstable angina (principal); I25.2 Old myocardial infarction; F17.200 Nicotine dependence, unspecified, uncomplicated; Z86.73 Personal history of transient ischemic attack (TIA), and cerebral infarction without residual deficits; Z79.82 Long term (current) use of aspirin; Z79.01 Long term (current) use of anticoagulants; Z88.5 Allergy status to narcotic agent; Z95.818 Presence of other cardiac implants and grafts
CPT/HCPCS: 99291; 96365; 96366 ×2; 96376; 96361; 36415; 93005; 85379; 80053; 82550; 82553; 83735; 84484; 85025; 85610; 85730; 71046; J1644 ×2

== ENCOUNTER 2017-12-11 12:54 | Emergency (ER) | payer OTHER ==
[2017-12-11 13:16] VITALS: TEMP 98.2
--- NOTE | 2017-12-11 13:30 | ED ---
Nausea/Vomiting/Diarrhea HPI - General Chief complaint: Nausea/Vomiting/Diarrhea Stated complaint: abdominal pain/vomiting Time Seen by Provider: 12/11/17 13:23 Source: patient, RN notes reviewed, old records reviewed Mode of arrival: ambulatory Limitations: no limitations - History of Present Illness Initial comments: Patient is a 47-year-old male presents emergency department today with chief complaint of epigastric abdominal pain radiating towards his back times one day. He reports some episodes of [id number] emesis. Patient reports these haven't told he said history of gastritis in the past. He states he does not follow with GI. Nonalcohol user. Patient is a smoker. - Related Data Home Medications Medication Instructions Recorded Confirmed Aspirin 325 mg PO HS 04/30/16 04/14/17 Clopidogrel [Plavix] 75 mg PO HS 04/30/16 04/14/17 Previous Rx's Medication Instructions Recorded Atorvastatin [Lipitor] 80 mg PO HS #90 tab 02/11/16 Metoprolol Tartrate [Lopressor] 25 mg PO BID #180 tab 02/11/16 Nitroglycerin Sl Tabs [Nitrostat] 0.4 mg SUBLINGUAL Q5M PRN #25 tab 02/11/16 Omeprazole 40 mg PO DAILY #40 capsule. 12/11/17 Ondansetron [Zofran ODT] 4 mg PO Q8HR #12 tab 12/11/17 Sucralfate [Carafate] 1 gm PO ACHS #40 tablet 12/11/17 Allergies Allergy/AdvReac Type Severity Reaction Status Date / Time morphine AdvReac Chest Pain Verified 12/11/17 13:14 Review of Systems ROS Statement: Those systems with pertinent positive or pertinent negative responses have been documented in the HPI. ROS Other: All systems not noted in ROS Statement are negative. Past Medical History Past Medical History: CVA/TIA, Hypertension, Myocardial Infarction ([place]) Additional Past Medical History / Comment(s): STATES HAD TIA 2 YRS AGO. doctor watching "spot" in his rt lung. DEGENERATIVE DISC DX LUMBAR SPINE, hx ulcer History of Any Multi-Drug Resistant Organisms: None Reported Past Surgical History: Heart Catheterization With Stent, Hernia Repair Additional Past Surgical History / Comment(s): zion hernia surgery as , PROXIMAL RCA STENT Past Anesthesia/Blood Transfusion Reactions: No Reported Reaction Date of Last Stent Placement:: 02/10/2016 Past Psychological History: Bipolar, Depression Smoking Status: Current every day smoker Past Alcohol Use History: Rare Past Drug Use History: None Reported - Past Family History Mother Family Medical History: No Reported History General Exam - General Exam Comments Initial Comments: Well-appearing 47-year-old male. Patient appears in no acute distress. Limitations: no limitations General appearance: alert, in no apparent distress Head exam: Present: atraumatic, normocephalic, normal inspection Eye exam: Present: normal appearance, PERRL, EOMI. Absent: scleral icterus, conjunctival injection, periorbital swelling ENT exam: Present: normal exam, mucous membranes moist Neck exam: Present: normal inspection. Absent: tenderness, meningismus, lymphadenopathy Respiratory exam: Present: normal lung sounds bilaterally. Absent: respiratory distress, wheezes, rales, rhonchi, stridor Cardiovascular Exam: Present: regular rate, normal rhythm, normal heart sounds. Absent: systolic murmur, diastolic murmur, rubs, gallop, clicks GI/Abdominal exam: Present: soft, tenderness (Epigastric), normal bowel sounds. Absent: distended, guarding, rebound, rigid Extremities exam: Present: normal inspection, full ROM, normal capillary refill. Absent: tenderness, pedal edema, joint swelling, calf tenderness Back exam: Present: normal inspection Neurological exam: Present: alert, oriented X3, CN II-XII intact Course Vital Signs 12/11/17 12/11/17 12/11/17 13:11 15:26 16:46 Temperature 98.2 F Pulse Rate 101 H 77 66 Respiratory 18 18 16 Rate Blood Pressure 179/101 140/98 140/83 O2 Sat by Pulse 100 100 98 Oximetry Medical Decision Making - Medical Decision Making Patient is a 47-year-old male who presents emergency department today with epigastric abdominal pain for the past few hours and complains of coffee-ground emesis. Patient is on Plavix after recent cardiac cath earlier this year. Patient denies chest pain or shortness breath. He reports that he's had these episodes a few times a month. Patient was seen at [facility] recently diagnosed with gastritis. He is not taking any antacid medication daily at this time. Patient's had no vomiting episodes in the emergency department. Patient's lab work does show normal hemoglobin of 15. Patient's chem she panels reviewed and normal. KUB shows on instructed bowel gas pattern. Patient was given Protonix, IV fluids and pain medication. He does feel somewhat better this time. He does feel better as well after GI cocktail. Discussed that this happened the Patient on antiacid medication, Carafate and Zofran. Discussed that he needs to have follow-up with GI specialty. Patient agrees to treatment plan will comply. Return parameters were discussed. He's had no vomiting episodes in the emergency department. Unable to obtain a gastro -cult sample - Lab Data Result diagrams: 12/11/17 13:30 12/11/17 13:30 Lab Results 12/11/17 12/11/17 12/11/17 Range/Units 13:30 13:30 13:30 WBC 11.9 H (3.8-10.6) k/uL RBC 5.11 (4.30-5.90) m/uL Hgb 15.8 (13.0-17.5) gm/dL Hct 48.3 (39.0-53.0) % MCV 94.7 (80.0-100.0) fL MCH 31.0 (25.0-35.0) pg MCHC 32.7 (31.0-37.0) g/dL RDW 13.6 (11.5-15.5) % Plt Count 249 (150-450) k/uL Neutrophils % 73 % Lymphocytes % 17 % Monocytes % 6 % Eosinophils % 2 % Basophils % 0 % Neutrophils # 8.7 H (1.3-7.7) k/uL Lymphocytes # 2.0 (1.0-4.8) k/uL Monocytes # 0.8 (0-1.0) k/uL Eosinophils # 0.2 (0-0.7) k/uL Basophils # 0.0 (0-0.2) k/uL PT 9.5 (9.0-12.0) sec INR 1.0 (<1.2) APTT 25.4 (22.0-30.0) sec Sodium 141 (137-145) mmol/L Potassium 5.2 H (3.5-5.1) mmol/L Chloride 105 (98-107) mmol/L Carbon Dioxide 26 (22-30) mmol/L Anion Gap 10 mmol/L BUN 19 (9-20) mg/dL Creatinine 1.10 (0.66-1.25) mg/dL Est GFR (CKD-EPI)AfAm >90 (>60 ml/min/1.73 sqM) Est GFR (CKD-EPI)NonAf 80 (>60 ml/min/1.73 sqM) Glucose 108 H (74-99) mg/dL Calcium 10.3 H (8.4-10.2) mg/dL Total Bilirubin 0.4 (0.2-1.3) mg/dL AST 27 (17-59) U/L ALT 25 (21-72) U/L Alkaline Phosphatase 66 (38-126) U/L Total Protein 8.0 (6.3-8.2) g/dL Albumin 4.4 (3.5-5.0) g/dL Amylase 68 (30-110) U/L Lipase 98 (23-300) U/L Urine Color Urine Appearance (Clear) Urine pH (5.0-8.0) Ur Specific [place] (1.001-1.035) Urine Protein (Negative) Urine Glucose (UA) (Negative) Urine Ketones (Negative) Urine Blood (Negative) Urine Nitrite (Negative) Urine Bilirubin (Negative) Urine Urobilinogen (<2.0) mg/dL Ur Leukocyte Esterase (Negative) 12/11/17 Range/Units 13:39 WBC (3.8-10.6) k/uL RBC (4.30-5.90) m/uL Hgb (13.0-17.5) gm/dL Hct (39.0-53.0) % MCV (80.0-100.0) fL MCH (25.0-35.0) pg MCHC (31.0-37.0) g/dL RDW (11.5-15.5) % Plt Count (150-450) k/uL Neutrophils % % Lymphocytes % % Monocytes % % Eosinophils % % Basophils % % Neutrophils # (1.3-7.7) k/uL Lymphocytes # (1.0-4.8) k/uL Monocytes # (0-1.0) k/uL Eosinophils # (0-0.7) k/uL Basophils # (0-0.2) k/uL PT (9.0-12.0) sec INR (<1.2) APTT (22.0-30.0) sec Sodium (137-145) mmol/L Potassium (3.5-5.1) mmol/L Chloride (98-107) mmol/L Carbon Dioxide (22-30) mmol/L Anion Gap mmol/L BUN (9-20) mg/dL Creatinine (0.66-1.25) mg/dL Est GFR (CKD-EPI)AfAm (>60 ml/min/1.73 sqM) Est GFR (CKD-EPI)NonAf (>60 ml/min/1.73 sqM) Glucose (74-99) mg/dL Calcium (8.4-10.2) mg/dL Total Bilirubin (0.2-1.3) mg/dL AST (17-59) U/L ALT (21-72) U/L Alkaline Phosphatase (38-126) U/L Total Protein (6.3-8.2) g/dL Albumin (3.5-5.0) g/dL Amylase (30-110) U/L Lipase (23-300) U/L Urine Color Yellow Urine Appearance Clear (Clear) Urine pH 5.5 (5.0-8.0) Ur Specific [place] 1.021 (1.001-1.035) Urine Protein Negative (Negative) Urine Glucose (UA) Negative (Negative) Urine Ketones Negative (Negative) Urine Blood Negative (Negative) Urine Nitrite Negative (Negative) Urine Bilirubin Negative (Negative) Urine Urobilinogen <2.0 (<2.0) mg/dL Ur Leukocyte Esterase Negative (Negative) 12/11/17 15:21 EKG shows a sinus rhythm with sinus arrhythmia. Normal EKG. Ventricular rate of 70 bpm. LA interval is 134 ms. QRS duration 76 ms. QT QTc is 374/43 ms. - Radiology Data Radiology results: report reviewed Non Objective bowel gas pattern noted. Disposition Clinical Impression: Gastritis, Gastric ulcer Disposition: HOME SELF-CARE Condition: Good Instructions: Gastritis (ED), Diet for Stomach Ulcers and Gastritis (ED) Additional Instructions: Patient advised to follow-up with primary care provider. Return to the emergency department if any alarming signs or symptoms occur. Prescriptions: Omeprazole 40 mg PO DAILY #40 capsule. Ondansetron [Zofran ODT] 4 mg PO Q8HR #12 tab Sucralfate [Carafate] 1 gm PO ACHS #40 tablet Is patient prescribed a controlled substance at d/c from ED?: No Referrals: None,Stated [Primary Care Provider] - 1-2 days Kenyon Fallon MD [STAFF PHYSICIAN] - 1-2 days Time of Disposition: 16:31
[2017-12-11] MEDS ORDERED: SODIUM CHLORIDE 0.9% 1,000 ML IV STA ×2 (13:36)
[2017-12-11] MEDS ORDERED: PANTOPRAZOLE 40 MG/10 ML VIAL IVP STA (13:44)
[2017-12-11] MEDS ORDERED: ONDANSETRON 4 MG/2 ML VIAL IVP STA (13:50)
[2017-12-11] MEDS ORDERED: HYDROmorphone 1 MG/ML 1 ML SYRINGE IVP STA (13:51)
[2017-12-11 14:01] LABS: Appearance,Urine Clear (Clear); Bilirubin,Urine Negative (Negative); Blood,Urine Negative (Negative); Color,Urine Yellow; Glucose,Urine (UA) Negative (Negative); Ketones,Urine Negative (Negative); Leukocyte Esterase,Urine Negative (Negative); Nitrite,Urine Negative (Negative); PH, Urine 5.5 (5.0-8.0); Protein,Urine Negative (Negative); Specific Gravity,Urine 1.021 (1.001-1.035); Urobilinogen,Urine <2.0 mg/dL (<2.0)
[2017-12-11 14:03] LABS: Basophils % (A) 0 %; Eosinophils # (A) 0.2 k/uL (0-0.7); Eosinophils % (A) 2 %; HCT 48.3 % (39.0-53.0); HGB 15.8 gm/dL (13.0-17.5); Lymphocytes % (A) 17 %; MCHC 32.7 g/dL (31.0-37.0); MCV 94.7 fL (80.0-100.0); Mean Platelet Volume 7.6; Monocytes # (A) 0.8 k/uL (0-1.0); Monocytes % (A) 6 %; Neutrophils # (A) 8.7 k/uL (1.3-7.7); Neutrophils % (A) 73 %; Platelet Count 249 k/uL (150-450); RBC 5.11 m/uL (4.30-5.90); RDW 13.6 % (11.5-15.5); WBC 11.9 k/uL (3.8-10.6)
[2017-12-11 14:11] LABS: Partial Thromboplastin Time 25.4 sec (22.0-30.0); Prothrombin Time 9.5 sec (9.0-12.0)
[2017-12-11 14:13] LABS: ALT 25 U/L (21-72); AST 27 U/L (17-59); Albumin 4.4 g/dL (3.5-5.0); Alkaline Phosphatase 66 U/L (38-126); Amylase 68 U/L (30-110); Anion Gap 10 mmol/L; Blood Urea Nitrogen 19 mg/dL (9-20); Calcium 10.3 mg/dL (8.4-10.2); Carbon Dioxide 26 mmol/L (22-30); Chloride 105 mmol/L (98-107); Glucose 108 mg/dL (74-99); Lipase 98 U/L (23-300); Potassium 5.2 mmol/L (3.5-5.1); Sodium 141 mmol/L (137-145); Total Bilirubin 0.4 mg/dL (0.2-1.3)
--- NOTE | 2017-12-11 14:50 | XR ---
Abdomen HISTORY: Pain Frontal view of the abdomen on 2 images correlated to prior exam 10/16/2015 Lung bases are clear. There is no evident pneumoperitoneum or bowel obstruction. Mild spinal curvatur e is noted. No pathologic calcification seen. IMPRESSION: Nonobstructive bowel gas pattern.
[2017-12-11] MEDS ORDERED: MAG HYDROX/AL HYDROX/SIMETH 30 ML, HYOSCYAMINE ELIXIR 10 ML, CIMETIDINE HCL 300 MG, LID... PO STA ×4 (16:20)
[2017-12-11 16:47] VITALS: BP 140/83; PULSE 66; RESP 16
== END 2017-12-11 16:47 | disposition home or self-care (01) ==
LOC: EC 12:54
DX: K25.9 Gastric ulcer, unspecified as acute or chronic, without hemorrhage or perforation (principal); K29.70 Gastritis, unspecified, without bleeding; I10 Essential (primary) hypertension; I25.2 Old myocardial infarction; F17.200 Nicotine dependence, unspecified, uncomplicated; Z79.82 Long term (current) use of aspirin; Z79.02 Long term (current) use of antithrombotics/antiplatelets; Z88.5 Allergy status to narcotic agent; Z95.5 Presence of coronary angioplasty implant and graft; Z86.73 Personal history of transient ischemic attack (TIA), and cerebral infarction without residual deficits
CPT/HCPCS: 36415; 93005; 80053; 82150; 83690; 85025; 85610; 85730; 81003; 74018; 99284; 96374; 96375 ×2; 96361 ×3; J2405; J1170; C9113

== ENCOUNTER 2020-09-11 11:18 | Inpatient (IN) | payer OTHER ==
[2020-09-11] MEDS ORDERED: ASPIRIN 81 MG PO STA (11:37)
[2020-09-11] MEDS ORDERED: SODIUM CHLORIDE 0.9% 500 ML 500 ML IV STA (11:37)
[2020-09-11 11:59] LABS: Basophils % (A) 0 %; Eosinophils # (A) 0.2 k/uL (0-0.7); Eosinophils % (A) 2 %; HCT 41.5 % (39.0-53.0); HGB 13.9 gm/dL (13.0-17.5); Lymphocytes # (A) 1.9 k/uL (1.0-4.8); Lymphocytes % (A) 18 %; MCH 31.5 pg (25.0-35.0); MCHC 33.6 g/dL (31.0-37.0); MCV 93.6 fL (80.0-100.0); Mean Platelet Volume 8.2; Monocytes # (A) 0.7 k/uL (0-1.0); Monocytes % (A) 7 %; Neutrophils # (A) 7.4 k/uL (1.3-7.7); Neutrophils % (A) 71 %; Platelet Count 263 k/uL (150-450); RBC 4.43 m/uL (4.30-5.90); RDW 13.6 % (11.5-15.5); WBC 10.4 k/uL (3.8-10.6)
[2020-09-11 12:12] LABS: ALT 21 U/L (4-49); AST 46 U/L (17-59); African American GFR (CKD) >90 (>60 ml/min/1.73 sqM); Alkaline Phosphatase 68 U/L (38-126); Anion Gap 8 mmol/L; Blood Urea Nitrogen 13 mg/dL (9-20); Calcium 9.2 mg/dL (8.4-10.2); Carbon Dioxide 21 mmol/L (22-30); Chloride 110 mmol/L (98-107); Glucose 107 mg/dL (74-99); Magnesium 2.1 mg/dL (1.6-2.3); Non-African American GFR(CKD) >90 (>60 ml/min/1.73 sqM); Potassium 4.5 mmol/L (3.5-5.1); Sodium 139 mmol/L (137-145); Total Bilirubin 0.2 mg/dL (0.2-1.3); Total Protein 7.1 g/dL (6.3-8.2)
--- NOTE | 2020-09-11 12:13 | ED ---
Chest Pain HPI - General Chief Complaint: Chest Pain Stated Complaint: Chest pain Time Seen by Provider: 09/11/20 11:25 Source: patient Mode of arrival: ambulatory Limitations: no limitations - History of Present Illness Initial Comments: Patient is a 50-year-old male, with history of heart disease, hypertension, presenting to emergency Department with complaints of chest pain that started approximately 2 AM this morning. Patient states he woke up in the middle of the night around 2 AM and noticed some chest discomfort with some radiation into both shoulders. He states he suffers from back pain and thought it could be coming from that as he got up and worked and has cried for about an hour, he stated didn't improve so he laid back down to go to sleep. When he woke up about 2 hours prior to arrival here, he states the chest pain was continuing so he came in for evaluation. He states does admit that it continues to radiate into both shoulders. He currently rates it a 4/10. He describes it as an achiness. He does not take any medications, he states he lost insurance and has not taken any prescription medications for over 2 years. He denies any recent fevers or chills, no shortness of breath. He is a smoker so normally has a little bit of a cough. He denies any abdominal pain, no nausea or vomiting. He has no further complaints. - Related Data Home Medications Medication Instructions Recorded Confirmed Aspirin 325 mg PO HS 04/30/16 04/14/17 Clopidogrel [Plavix] 75 mg PO HS 04/30/16 04/14/17 Previous Rx's Medication Instructions Recorded Atorvastatin [Lipitor] 80 mg PO HS #90 tab 02/11/16 Metoprolol Tartrate [Lopressor] 25 mg PO BID #180 tab 02/11/16 Nitroglycerin Sl Tabs [Nitrostat] 0.4 mg SUBLINGUAL Q5M PRN #25 tab 02/11/16 Omeprazole 40 mg PO DAILY #40 capsule. 12/11/17 Ondansetron [Zofran ODT] 4 mg PO Q8HR #12 tab 12/11/17 Sucralfate [Carafate] 1 gm PO ACHS #40 tablet 12/11/17 Allergies Allergy/AdvReac Type Severity Reaction Status Date / Time morphine AdvReac Chest Pain Verified 09/11/20 11:19 Review of Systems ROS Statement: Those systems with pertinent positive or pertinent negative responses have been documented in the HPI. ROS Other: All systems not noted in ROS Statement are negative. EKG Findings - EKG Comments: EKG Findings:: Normal sinus rhythm, possible inferior infarct, age undetermined, no signs of acute ST segment elevation. Similar to previous on 12/11/2017. Ventricular rate 98, W[place] interval 152, QT 344. Past Medical History Past Medical History: CVA/TIA, Hypertension, Myocardial Infarction ([place]) Additional Past Medical History / Comment(s): STATES HAD TIA 2 YRS AGO. doctor watching "spot" in his rt lung. DEGENERATIVE DISC DX LUMBAR SPINE, hx ulcer History of Any Multi-Drug Resistant Organisms: None Reported Past Surgical History: Heart Catheterization With Stent, Hernia Repair Additional Past Surgical History / Comment(s): zion hernia surgery as , PROXIMAL RCA STENT Past Anesthesia/Blood Transfusion Reactions: No Reported Reaction Date of Last Stent Placement:: 02/10/2016 Past Psychological History: Bipolar, Depression, PTSD Smoking Status: Current every day smoker Past Alcohol Use History: Rare Past Drug Use History: None Reported - Past Family History Mother Family Medical History: No Reported History General Exam - General Exam Comments Initial Comments: GENERAL: Patient is well-developed and well-nourished. Patient is nontoxic and in no acute distress. HEAD: Atraumatic, normocephalic. EYES: Pupils equal round and reactive to light, extraocular movements intact, sclera anicteric, conjunctiva are normal. Eyelids were unremarkable. ENT: Nares patent, oropharynx clear without exudates. Moist mucous membranes. NECK: Normal range of motion, supple without lymphadenopathy or JVD. LUNGS: Unlabored respirations. Breath sounds clear to auscultation bilaterally and equal. No wheezes rales or rhonchi. HEART: Regular rate and rhythm without murmurs, rubs or gallops. ABDOMEN: Soft, nontender, normoactive bowel sounds. No guarding, no rebound. No masses appreciated. : Deferred MUSCULOSKELETAL: Normal extremities with adequate strength and normal range of motion, no pitting or edema. No clubbing or cyanosis. NEUROLOGICAL: Patient is alert and oriented x 3. Motor and sensory are also intact. Cranial nerves II through XII grossly intact. Symmetrical smile. Normal speech, normal gait. PSYCH: Normal mood, normal affect. SKIN: Warm, Dry, normal turgor, no rashes or lesions noted. Limitations: no limitations Course Vital Signs 09/11/20 09/11/20 11:19 12:55 Temperature 98 F Pulse Rate 107 H 81 Respiratory 18 16 Rate Blood Pressure 175/106 126/93 O2 Sat by Pulse 98 98 Oximetry Chest Pain MDM - MDM Patient is a 50-year-old male with history of heart disease, one stent placed, hypertension, not on any current medications, presenting with chest pain since approximately 2 AM this morning. Rates it a 4/10 at this time. He is afebrile, EKG shows no acute ST segment elevation. Normal sinus rhythm. His x-ray shows no acute process, labs are showing a normal white count, normal d-dimer and coags, troponin came back elevated at 2.280. Rapid Covid is negative. Patient was given an aspirin, his pain is minimal 2/10 at this time. He is resting comfortably. Patient was started on low density heparin. I did contact cardiology, spoke with Jessica, who agrees to see the patient. I did order an echo which is pending. Patient was accepted by Dr. Meza. Case discussed with Dr. Barbosa. Critical Care Time Critical Care Time: Yes Total Critical Care Time: 37 (Chin presented with chest pain onset at 2 AM yesterday. EKG reveals no ST segment elevation, no acute process. Troponin is elevated at 2.2. Patient was started on heparin and admitted for NSTEMI.) Disposition Clinical Impression: Acute non-ST elevation myocardial infarction (NSTEMI) Disposition: ADMITTED IP TO THIS HOSP Condition: Stable Referrals: None,Stated [Primary Care Provider] - 1-2 days Decision Date: 09/11/20 Decision Time: 13:48
[2020-09-11 12:16] LABS: INR 0.9 (<1.2)
[2020-09-11 12:17] LABS: Partial Thromboplastin Time 25.7 sec (22.0-30.0); Prothrombin Time 9.9 sec (9.0-12.0)
--- NOTE | 2020-09-11 12:21 | XR ---
EXAMINATION TYPE: XR chest 2V DATE OF EXAM: 09/11/2020 COMPARISON: 04/14/2017 INDICATION: Chest pain TECHNIQUE: Frontal and lateral views of the chest are obtained. FINDINGS: The heart size is normal. The pulmonary vasculature is normal. The lungs are clear. IMPRESSION: 1. No acute pulmonary process.
[2020-09-11] MEDS ORDERED: HEPARIN SODIUM 1,000 UN/ML (10ML VL) IV PRN ×2 (13:30→13:39)
[2020-09-11] MEDS ORDERED: HEPARIN SOD,PORK IN 0.45% NACL 25,000 UNIT in 0.45% NACL 1 250ML.BAG IV SCH (13:30)
[2020-09-11] MEDS ORDERED: HEPARIN SODIUM 1,000 UN/ML (10ML VL) IV ONE ×2 (13:30→13:39)
[2020-09-11] MEDS ORDERED: NITROGLYCERIN SL TABS 0.4 MG TAB SUBLINGUAL PRN (13:44)
[2020-09-11] MEDS: HEPARIN SOD,PORK IN 0.45% NACL 25,000 UNIT in 0.45% NACL 1 250ML.BAG IV SCH (13:48)
[2020-09-11] MEDS: NICOTINE 14MG/24HR PATCH TRANSDERM SCH (14:41)
[2020-09-11 15:03] LABS: Basophils % (A) 0 %; Eosinophils # (A) 0.1 k/uL (0-0.7); Eosinophils % (A) 2 %; HCT 41.2 % (39.0-53.0); HGB 13.6 gm/dL (13.0-17.5); Lymphocytes # (A) 2.4 k/uL (1.0-4.8); Lymphocytes % (A) 26 %; MCH 31.5 pg (25.0-35.0); MCHC 32.9 g/dL (31.0-37.0); MCV 95.7 fL (80.0-100.0); Monocytes # (A) 0.5 k/uL (0-1.0); Monocytes % (A) 6 %; Neutrophils # (A) 5.8 k/uL (1.3-7.7); Neutrophils % (A) 64 %; Platelet Count 277 k/uL (150-450); RBC 4.31 m/uL (4.30-5.90); RDW 14.4 % (11.5-15.5); WBC 9.1 k/uL (3.8-10.6)
[2020-09-11 15:12] LABS: Partial Thromboplastin Time 55.3 sec (22.0-30.0); Prothrombin Time 10.3 sec (9.0-12.0)
--- NOTE | 2020-09-11 16:54 | P.HPIM ---
History of Present Illness Patient is a pleasant 50-year-old male came in with complaints of chest pain is started after midnight around 2 AM in the morning woke up in the middle of the night chest pain is pressure-like sensation radiating to both shoulders constant which initially lasted for an hour and went back to sleep again woke up again. Started having chest pain came to ER. Patient current chest pain is around 4/10 in severity. Patient does have history of coronary artery disease stopped taking his medications since he lost his insurance. Patient to denied any shortness of breath chest pain is nonpleuritic not associated with food no shortness of breath or denied any diaphoresis. EKG showed some acute ST-T wave changes in the inferior leads facet of troponin is elevated to 2.28. Patient continues to smoke. Chest x-ray did not show any significant abnormality REVIEW OF SYSTEMS: CONSTITUTIONAL: No fever, no malaise, no fatigue. HEENT: No recent visual problems or hearing problems. Denied any sore throat. CARDIOVASCULAR: No orthopnea, PND, no palpitations, no syncope. PULMONARY: No shortness of breath, no cough, no hemoptysis. GASTROINTESTINAL: No diarrhea, no nausea, no vomiting, no abdominal pain. NEUROLOGICAL: No headaches, no weakness, no numbness. HEMATOLOGICAL: Denies any bleeding or petechiae. GENITOURINARY: Denies any burning micturition, frequency, or urgency. MUSCULOSKELETAL/RHEUMATOLOGICAL: Denies any joint pain, swelling, or any muscle pain. ENDOCRINE: Denies any polyuria or polydipsia. The rest of the 14-point review of systems is negative. PHYSICAL EXAMINATION: GENERAL: The patient is alert and oriented x3, not in any acute distress. Well developed, well nourished. HEENT: Pupils are round and equally reacting to light. EOMI. No scleral icterus. No conjunctival pallor. Normocephalic, atraumatic. No pharyngeal erythema. No thyromegaly. CARDIOVASCULAR: S1 and S2 present. No murmurs, rubs, or gallops. PULMONARY: Chest is clear to auscultation, no wheezing or crackles. ABDOMEN: Soft, nontender, nondistended, normoactive bowel sounds. No palpable organomegaly. MUSCULOSKELETAL: No joint swelling or deformity. EXTREMITIES: No cyanosis, clubbing, or pedal edema. NEUROLOGICAL: Gross neurological examination did not reveal any focal deficits. SKIN: No rashes. Assessment and plan -Acute non-ST elevation myocardial infarction: Patient will be started on IV heparin, cardiology will be consulted. Patient is on metoprolol which will be continued patient will undergo cardiac catheterization tomorrow -Hypertension patient is not on any home medications at this time. Patient will be monitored -Hyperlipidemia -History of coronary artery disease with previous IN patient had a stent in the past to RCA in 2017 - nicotine use: Counseling was provided DVT prophylaxis: On IV heparin Past Medical History Past Medical History: CVA/TIA, Hypertension, Myocardial Infarction ([place]) Additional Past Medical History / Comment(s): STATES HAD TIA 2 YRS AGO. doctor watching "spot" in his rt lung. DEGENERATIVE DISC DX LUMBAR SPINE, hx ulcer Last Myocardial Infarction Date:: 2016 History of Any Multi-Drug Resistant Organisms: None Reported Past Surgical History: Heart Catheterization With Stent, Hernia Repair Additional Past Surgical History / Comment(s): zion hernia surgery as , PROXIMAL RCA STENT Past Anesthesia/Blood Transfusion Reactions: No Reported Reaction Date of Last Stent Placement:: 02/10/2016 Past Psychological History: Bipolar, Depression, PTSD Smoking Status: Current every day smoker Past Alcohol Use History: Rare Past Drug Use History: None Reported - Past Family History Mother Family Medical History: No Reported History Medications and Allergies Home Medications Medication Instructions Recorded Confirmed Type No Known Home Medications 09/11/20 09/11/20 History Allergies Allergy/AdvReac Type Severity Reaction Status Date / Time morphine AdvReac Chest Pain Verified 09/11/20 14:01 Physical Exam Vitals: Vital Signs Temp Pulse Pulse Resp BP BP Pulse Ox 09/11/20 14:38 78 18 09/11/20 14:21 78 18 127/96 98 09/11/20 13:48 86 16 134/95 99 09/11/20 12:55 81 16 126/93 98 09/11/20 11:19 98 F 107 H 18 175/106 98 Intake and Output 09/11/20 09/11/20 09/11/20 06:59 14:59 22:59 Other: Voiding Method Urinal # Voids 1 Weight 90.9 kg Results CBC & Chem 7: 09/11/20 14:14 09/11/20 11:39 Labs: Abnormal Lab Results - Last 24 Hours (Table) 08/04/21 08/04/21 Range/Units 11:39 11:39 Chloride 110 H (98-107) mmol/L Carbon Dioxide 21 L (22-30) mmol/L Glucose 107 H (74-99) mg/dL Troponin I 2.280 H* (0.000-0.034) ng/mL Thrombosis Risk Factor Assmnt - Choose All That Apply Any of the Below Risk Factors Present?: Yes Each Factor Represents 1 point: Age 41-60 years Other Risk Factors: No Other congenital or acquired thrombophilia - If yes, enter type in comment: No Thrombosis Risk Factor Assessment Total Risk Factor Score: 1 Thrombosis Risk Factor Assessment Level: Low Risk
[2020-09-11] MEDS: METOPROLOL TARTRATE 25 MG TAB PO SCH (21:00)
[2020-09-12] MEDS: ACETAMINOPHEN TAB 325 MG TAB PO PRN ×2 (06:05→17:13)
--- NOTE | 2020-09-12 07:54 | ECHOF ---
Referral Reason:nstemi MEASUREMENTS -------- HEIGHT: 172.7 cm WEIGHT: 90.7 kg BP: 126/93 RVIDd: 3.5 cm (< 3.3) IVSd: 1.2 cm (0.6 - 1.1) LVIDd: 3.8 cm (3.9 - 5.3) LVPWd: 1.1 cm (0.6 - 1.1) IVSs: 1.7 cm LVIDs: 2.8 cm LVPWs: 1.5 cm LA Diam: 3.4 cm (2.7 - 3.8) LAESV Index (A-L): 19.73 ml/m Ao Diam: 3.1 cm (2.0 - 3.7) AV Cusp: 1.3 cm (1.5 - 2.6) MV EXCURSION: 15.618 mm (> 18.000) MV EF SLOPE: 75 mm/s (70 - 150) EPSS: 0.5 cm MV E Aurelio: 1.21 m/s MV DecT: 211 ms MV A Aurelio: 1.17 m/s MV E/A Ratio: 1.04 RAP: 5.00 mmHg RVSP: 22.70 mmHg FINDINGS -------- Sinus rhythm. This was a technically adequate study. The left ventricular size is normal. There is borderline concentric left ventricular hypertrophy. Overall left ventricular systolic function is normal with, an EF between 55 - 60 %. The diastolic filling pattern is normal for the age of the patient 13.59. The right ventricle is mildly enlarged. Normal LA size by volume 22+/-6 ml/m2. The right atrial size is normal. Interatrial and interventricular septum intact. Aortic valve is trileaflet and is mildly thickened. The mitral valve is normal. Mild mitral regurgitation is present. The tricuspid valve appears structurally normal. Trace tricuspid regurgitation present. Right timoteo tricular systolic pressure is normal at < 35 mmHg. There is no pulmonic regurgitation present. The aortic root size is normal. Normal inferior vena cava with normal inspiratory collapse consistent with estimated right atrial pre ssure of 5 mmHg. There is no pericardial effusion. CONCLUSIONS -------- 1. There is borderline concentric left ventricular hypertrophy. 2. Overall left ventricular systolic function is normal with, an EF between 55 - 60 %. 3. The right ventricle is mildly enlarged. 4. Normal LA size by volume 22+/-6 ml/m2. 5. Aortic valve is trileaflet and is mildly thickened. 6. Mild mitral regurgitation is present. 7. Trace tricuspid regurgitation present. 8. There is no pericardial effusion. OPERATIONAL METEOROLOGIST: Eleanor Polanco RDCS
[2020-09-12] MEDS: ASPIRIN 325 MG TAB PO SCH (08:31)
[2020-09-12] MEDS: METOPROLOL TARTRATE 25 MG TAB PO SCH ×2 (08:31→20:12)
[2020-09-12] MEDS: ATORVASTATIN 40 MG TAB PO SCH (08:31)
[2020-09-12] MEDS: NICOTINE 14MG/24HR PATCH TRANSDERM SCH (08:31)
[2020-09-12] MEDS ORDERED: ALPRAZolam 0.5 MG TAB PO PRN ×2 (08:45→14:03)
[2020-09-12] MEDS ORDERED: ALPRAZolam 0.25 MG TAB PO PRN ×2 (08:45→14:03)
[2020-09-12] MEDS ORDERED: SODIUM CHLORIDE 0.9% 1,000 ML in EMPTY BAG 1 BAG IV ONE ×2 (08:45→14:03)
[2020-09-12 09:17] LABS: Basophils % (A) 0 %; Eosinophils # (A) 0.1 k/uL (0-0.7); Eosinophils % (A) 2 %; HCT 41.5 % (39.0-53.0); HGB 13.8 gm/dL (13.0-17.5); Lymphocytes # (A) 2.5 k/uL (1.0-4.8); Lymphocytes % (A) 26 %; MCH 31.5 pg (25.0-35.0); MCHC 33.3 g/dL (31.0-37.0); MCV 94.6 fL (80.0-100.0); Monocytes # (A) 0.6 k/uL (0-1.0); Monocytes % (A) 6 %; Neutrophils # (A) 6.2 k/uL (1.3-7.7); Neutrophils % (A) 64 %; Platelet Count 270 k/uL (150-450); RBC 4.38 m/uL (4.30-5.90); RDW 14.4 % (11.5-15.5); WBC 9.6 k/uL (3.8-10.6)
[2020-09-12 09:22] LABS: INR 0.9 (<1.2); Partial Thromboplastin Time 32.7 sec (22.0-30.0); Prothrombin Time 10.2 sec (9.0-12.0)
--- NOTE | 2020-09-12 09:27 | P.CRDCN ---
History of Present Illness History of present illness: HISTORY OF PRESENTING ILLNESS This is a pleasant 50-year-old male past medical history significant for coronary artery disease status post PCI to the proximal and mid RCA in 2017 in setting of NSTEMI, chronic nicotine dependence, dyslipidemia, hypertension. Patient followed up after his hospitalization Dr. Moore in 2017 however did not follow up after this appointment. We have been asked to see in consultation for chest pain. Patient is seen and examined in the emergency department. Patient states he woke up in the middle of the night around 2 AM with chest pain. Describes it as a 8/10 and a pressure. He had radiation to his jaw, left shoulder and left arm. His pain increased and radiated to his right shoulder/arm as well. He states his pain has been constant. He did some yard work later that day and felt as if his chest pain was getting better. However, later in the day his pain continued and decided to present to the emergency department. He states his chest pain is very similar to his NSTEMI in 2017, however, this time it was more intense. Currently he has 3/10 chest pain. He states he doesn't take any of his prescribed medications, he states he lost insurance is not taking any prescription medications for the past 2 years. He is a current every day smoker, smokes half a pack per day. He does drink alcohol but states occasionally. No illicit drug use. He denies shortness of breath, nausea, diaphoresis, lightheadedness, dizziness, syncope. He denies symptoms of orthopnea or PND. Repeat echocardiogram revealed EF 55-60%, mild mitral regurgitation DIAGNOSTICS EKG reveals sinus rhythm, heart rate 98, nonspecific STT wave abnormalities. Prior EKGs appear similar. Most recent echocardiogram 01/2016 revealed EF 55-60%, trace mitral regurgitation, trace tricuspid regurgitation Chest xray no acute cardiopulmonary process. Laboratory reviewed, CBC unremarkable, d-dimer negative, troponin 2.2-->3.6-->3.4, proBNP 136, sodium 139, potassium 4.5, BUN 13, serum creatinine 0.9, magnesium 2.1 Home medications: Patient has not taken medications in 2 years. REVIEW OF SYSTEMS At the time of my exam: CONSTITUTIONAL: Denies fever or chills. CARDIOVASCULAR: +chest pain, shortness of breath, orthopnea, PND or palpitations. RESPIRATORY: Denies cough. GASTROINTESTINAL: Denies abdominal pain, diarrhea, constipation, nausea or vomiting. MUSCULOSKELETAL: Denies myalgias. NEUROLOGIC: Denies numbness, tingling, headacbe or weakness. ENDOCRINE: Denies fatigue, weight change, polydipsia or polyurina. GENITOURINARY: Denies burning, hematuria or urgency with micturation. HEMATOLOGIC: Denies history of anemia or bleeding. PHYSICAL EXAMINATION Blood [id number] heart rate 86 afebrile and maintaining oxygen saturation 99% on room air CONSTITUTIONAL: No apparent distress. HEENT: Head is normocephalic. Pupils are equal, round. Sclerae anicteric. Mucous membranes of the mouth are moist. No JVD. No carotid bruit. CHEST EXAMINATION: Lungs are clear to auscultation. No chest wall tenderness is noted on palpation or with deep breathing. HEART EXAMINATION: Regular rate and rhythm. S1, S2 heard. Systolic murmur at apex ABDOMEN: Soft, nontender. Positive bowel sounds. EXTREMITIES: 2+ peripheral pulses, no lower extremity edema and no calf tenderness. NEUROLOGIC EXAMINATION: Patient is awake, alert and oriented x3. ASSESSMENT NSTEMI Coronary artery disease status post PCI to the proximal and mid RCA in 2017 in setting of NSTEMI Chronic nicotine dependence Dyslipidemia Hypertension. PLAN Echocardiogram obtained and reviewed We recommend proceeding with cardiac catheterization I have discussed the risks, benefits and alternative therapies for the above- mentioned procedure and for both sedation/analgesia as well as necessary blood product administration, if indicated, as they pertain to this patient. The patient has indicated understanding and acceptance of the risks and procedures discussed. Questions have been answered appropriately and he is agreeable to move forward with the above-stated procedure. Plan for cardiac catheterization with Dr. Tamayo Further recommendations based on clinical course. Nurse Practitioner note has been reviewed, I agree with a documented findings and plan of care. Patient was seen and examined. Past Medical History Past Medical History: CVA/TIA, Hypertension, Myocardial Infarction ([place]) Additional Past Medical History / Comment(s): STATES HAD TIA 2 YRS AGO. doctor watching "spot" in his rt lung. DEGENERATIVE DISC DX LUMBAR SPINE, hx ulcer History of Any Multi-Drug Resistant Organisms: None Reported Past Surgical History: Heart Catheterization With Stent, Hernia Repair Additional Past Surgical History / Comment(s): zion hernia surgery as infant, PROXIMAL RCA STENT Past Anesthesia/Blood Transfusion Reactions: No Reported Reaction Date of Last Stent Placement:: 02/10/2016 Past Psychological History: Bipolar, Depression, PTSD Smoking Status: Current every day smoker Past Alcohol Use History: Rare Past Drug Use History: None Reported - Past Family History Mother Family Medical History: No Reported History Medications and Allergies Home Medications Medication Instructions Recorded Confirmed Type No Known Home Medications 09/11/20 09/11/20 History Allergies Allergy/AdvReac Type Severity Reaction Status Date / Time morphine AdvReac Chest Pain Verified 09/11/20 14:01 Physical Exam Vitals: Vital Signs Temp Pulse Resp BP Pulse Ox 09/11/20 12:55 81 16 126/93 98 09/11/20 11:19 98 F 107 H 18 175/106 98 Intake and Output 09/10/20 09/11/20 09/11/20 22:59 06:59 14:59 Other: Weight 90.718 kg Results 09/12/20 08:13 09/11/20 11:39 Cardiac Enzymes 09/11/20 09/11/20 Range/Units 11:39 11:39 AST 46 (17-59) U/L Troponin I 2.280 H* (0.000-0.034) ng/mL Coagulation 09/11/20 Range/Units 11:39 PT 9.9 (9.0-12.0) sec APTT 25.7 (22.0-30.0) sec CBC 09/11/20 Range/Units 11:39 WBC 10.4 (3.8-10.6) k/uL RBC 4.43 (4.30-5.90) m/uL Hgb 13.9 (13.0-17.5) gm/dL Hct 41.5 (39.0-53.0) % Plt Count 263 (150-450) k/uL Comprehensive Metabolic Panel 09/11/20 Range/Units 11:39 Sodium 139 (137-145) mmol/L Potassium 4.5 (3.5-5.1) mmol/L Chloride 110 H (98-107) mmol/L Carbon Dioxide 21 L (22-30) mmol/L BUN 13 (9-20) mg/dL Creatinine 0.91 (0.66-1.25) mg/dL Glucose 107 H (74-99) mg/dL Calcium 9.2 (8.4-10.2) mg/dL AST 46 (17-59) U/L ALT 21 (4-49) U/L Alkaline Phosphatase 68 (38-126) U/L Total Protein 7.1 (6.3-8.2) g/dL Albumin 4.0 (3.5-5.0) g/dL Current Medications Generic Name Dose Route Start Last Admin Trade Name Freq PRN Reason Stop Dose Admin Heparin Sodium (Porcine) 0 unit 09/11/20 13:39 Heparin Sodium 1,000 Un/Ml (10ml Vl) IV PER PROTOCOL PRN Low PTT Protocol Heparin Sodium/Sodium Chloride 250 mls @ 9.997 mls/hr 09/11/20 13:45 25,000 unit/ Sodium Chloride IV .Q24H NOHEMY Protocol 11.02 UNITS/KG/HR Intake and Output 09/10/20 09/11/20 09/11/20 22:59 06:59 14:59 Other: Weight 90.718 kg Patient Weight 09/12/20 06:59 Weight 90.718 kg 09/11/20 11:39 09/11/20 11:39
[2020-09-12] MEDS ORDERED: LIDOCAINE 1% INJ 10MG/ML (20 ML MDV) ONE (10:43)
[2020-09-12] MEDS ORDERED: fentaNYL (PF) 50 MCG/ML 2 ML AMP ONE (10:44)
[2020-09-12] MEDS ORDERED: HEPARIN SODIUM 1,000 UN/ML (10ML VL) ONE ×2 (10:44→12:17)
[2020-09-12] MEDS ORDERED: VERAPAMIL 2.5 MG/ML 2 ML AMP ONE (10:44)
[2020-09-12] MEDS ORDERED: MIDAZOLAM 2 MG/2 ML VIAL IV ONE (11:09)
[2020-09-12] MEDS ORDERED: fentaNYL (PF) 50 MCG/ML 2 ML AMP IV ONE (11:09)
[2020-09-12] MEDS ORDERED: SODIUM CHLORIDE 0.9% 1,000 ML IV ONE (11:11)
[2020-09-12] MEDS ORDERED: LIDOCAINE 1% INJ 10MG/ML (20 ML MDV) SQ ONE (11:15)
[2020-09-12] MEDS ORDERED: VERAPAMIL SYRINGE (5 MG/10 ML) INTRAARTER ONE (11:16)
[2020-09-12] MEDS ORDERED: HEPARIN SODIUM 1,000 UN/ML (10ML VL) IV ONE (11:24)
--- NOTE | 2020-09-12 11:50 | P.CARDCATH ---
Date of Procedure: 09/12/20 Preoperative Diagnosis: Non-STEMI Postoperative Diagnosis: Total occlusion of the RCA Procedure(s) Performed: Left heart catheterization without left ventriculography Description of Procedure: HISTORY: This is a 50-year-old gentleman with history of ischemic heart disease at the previous stent placement done in 2017 to the right coronary artery. Since then patient hasn't had any follow-up. Patient now comes with complaints of prolonged chest pain and positive troponins suggestive of non-ST DE. Patient is advised to have an are catheterization for definitive diagnosis CONSENT:I have discussed the risks, benefits and alternative therapies for the above-mentioned procedure and for both sedation/analgesia as well as necessary blood product administration, if indicated, as they pertain to this patient. The patient has indicated understanding and acceptance of the risks and procedures discussed. PROCEDURE: Patient was brought to the lab in a fasting state. Patient was given some IV sedation. The right groin is infiltrated with lidocaine and right femoral artery was entered using Seldinger technique. A 6-Lith[place]ian catheter was left in place and selective coronary arteriography was performed. Patient tolerated the procedure well. Patient is waiting to have intervention by Dr. JED Maria.. No immediate complications were noted and patient was transferred to [facility] in a stable condition Conscious Sedation: Versed 2mg Fentanyl 50 g Duration 18minutes HEMODYNAMICS: The aortic pressure is 120/70. Left ventricular end-diastolic pressure was not measured SELECTIVE CORONARY ARTERIOGRAPHY: LEFT MAIN: Normal length and free of occlusive disease THE LEFT ANTERIOR DESCENDING CORONARY ARTERY: . This is a fair caliber vessel. Free of any significant focal disease. There is mild intimal plaque THE LEFT CIRCUMFLEX AND IS CORONARY ARTERY: This is a fair caliber vessel and with the an area of haziness in the proximal portion. Seem to be related to mild eccentric stenosis. No Sigmund focal lesions are noted THE RIGHT CORONARY ARTERY: . Totally occluded in the proximal stented area. There are collaterals from the left coronary system to the RCA LEFT VENTRICULOGRAPHY: A performed FINAL IMPRESSION: Total occlusion of the RCA in the proximal stented area. PLAN: Possible stent placement of the RCA PROGNOSIS: Guarded
[2020-09-12] MEDS ORDERED: IOPAMIDOL-370 125ML BTL INJ ONE (12:24)
[2020-09-12] MEDS ORDERED: ASPIRIN 325 MG TAB PO STA (14:03)
[2020-09-12] MEDS ORDERED: NITROGLYCERIN SL TABS 0.4 MG TAB SUBLINGUAL PRN (14:03)
[2020-09-12] MEDS ORDERED: ATORVASTATIN 80 MG TAB PO STA (14:03)
--- NOTE | 2020-09-12 16:25 | P.PN ---
Subjective Progress Note Date: 09/12/20 Patient is a pleasant 50-year-old male came in with complaints of chest pain is started after midnight around 2 AM in the morning woke up in the middle of the night chest pain is pressure-like sensation radiating to both shoulders constant which initially lasted for an hour and went back to sleep again woke up again. Started having chest pain came to ER. Patient current chest pain is around 4/10 in severity. Patient does have history of coronary artery disease stopped taking his medications since he lost his insurance. Patient to denied any shortness of breath chest pain is nonpleuritic not associated with food no shortness of breath or denied any diaphoresis. EKG showed some acute ST-T wave changes in the inferior leads facet of troponin is elevated to 2.28. Patient continues to smoke. Chest x-ray did not show any significant abnormality 09/12/2020 Patient is evaluated bedside today awaiting cardiac catheterization. Patient states that he had a previous stent completed in 2017 however did not follow-up with any monkey breeder and did not continue taking medication due to an issue with insurance. Patient is currently not having any chest pain. Patient is a current pack-a-day smoker, he is receiving a nicotine patch. Patient states that he is in rare occasional drinker. Patient states that his grandfather had a CA at the age of 60 of them that there is no family history. Patient was started on aspirin, Lipitor, metoprolol by cardiology services. Patient is pending cardiac intervention tomorrow by Dr. JED Maria for a total occlusion of the RCA. Echocardiogram shows ejection fraction of 55-60%. ROS: Constitutional: Denied any fatigue denied any fever. Cardio vascular: denied any chest pain, palpitations Gastrointestinal denied any nausea vomiting Pulmonary: Denied any shortness of breath cough Neurologic denied any new focal deficits All inpatient medications were reviewed and appropriate changes in these medications as dictated in the interval history and assessment and plan. PHYSICAL EXAMINATION: GENERAL: The patient is alert and oriented x3, not in any acute distress. Well developed, well nourished. HEENT: Pupils are round and equally reacting to light. EOMI. No scleral icterus. No conjunctival pallor. Normocephalic, atraumatic. No pharyngeal erythema. No thyromegaly. CARDIOVASCULAR: S1 and S2 present. No murmurs, rubs, or gallops. PULMONARY: Chest is clear to auscultation, no wheezing or crackles. ABDOMEN: Soft, nontender, nondistended, normoactive bowel sounds. No palpable organomegaly. MUSCULOSKELETAL: No joint swelling or deformity. EXTREMITIES: No cyanosis, clubbing, or pedal edema. NEUROLOGICAL: Gross neurological examination did not reveal any focal deficits. SKIN: No rashes. Assessment and plan -Acute non-ST elevation myocardial infarction: Patient had a cardiac catheterization today, he is pending intervention with Dr. JED Maria tomorrow for a total occluded RCA. -Hypertension - patient has been started on metoprolol 25 mg by mouth twice a day by cardiology services -Hyperlipidemia patient is started on a statin 40 mg by mouth daily -History of coronary artery disease with previous CA patient had a stent in the past to RCA in 2017 - nicotine use: Counseling was provided patient is receiving a nicotine patch DVT prophylaxis: IV heparin on hold for cardiac cath. Objective - Vital Signs Vital signs: Vital Signs Temp 98.3 F 09/12/20 13:35 Pulse 75 09/12/20 15:20 Resp 20 09/12/20 15:20 BP 125/72 09/12/20 15:20 Pulse Ox 100 09/12/20 13:35 Intake & Output 09/11/20 09/12/20 09/12/20 18:59 06:59 18:59 Output Total 300 Balance -300 Weight 90.9 kg 90.4 kg Output: Urine 300 Other: Voiding Method Urinal Urinal # Voids 1 1 - Labs CBC & Chem 7: 09/12/20 08:13 09/11/20 11:39 Labs: Abnormal Lab Results - Last 24 Hours (Table) 09/11/20 09/12/20 Range/Units 18:29 08:13 APTT 32.7 H (22.0-30.0) sec Troponin I 3.460 H* (0.000-0.034) ng/mL Assessment and Plan Time with Patient: Greater than 30
[2020-09-12 17:31] LABS: Chol/HDL Ratio 5.77; LDL Cholesterol,Calculated 161.6 mg/dL (0.0-131.0); VLDL Calculation 24.4 mg/dL (5.00-40.00)
[2020-09-12] MEDS: HEPARIN SOD,PORK IN 0.45% NACL 25,000 UNIT in 0.45% NACL 1 250ML.BAG IV SCH (23:26)
[2020-09-13] MEDS: ATORVASTATIN 40 MG TAB PO SCH (06:39)
[2020-09-13] MEDS: ASPIRIN 325 MG TAB PO SCH (06:39)
[2020-09-13] MEDS: METOPROLOL TARTRATE 25 MG TAB PO SCH ×2 (06:39→20:08)
[2020-09-13] MEDS ORDERED: HEPARIN SODIUM,PORCINE 10,000 UNIT in SODIUM CHLORIDE 0.9% 1,000 ML IRRIGATION PRN ×4 (07:00)
[2020-09-13] MEDS ORDERED: HEPARIN SODIUM,PORCINE 2,500 UNIT in SODIUM CHLORIDE 0.9% 250 ML IRRIGATION PRN ×4 (07:00)
[2020-09-13] MEDS: NICOTINE 14MG/24HR PATCH TRANSDERM SCH (08:08)
[2020-09-13] MEDS ORDERED: SODIUM CHLORIDE 0.9% 1,000 ML in EMPTY BAG 1 BAG IV ONE (08:13)
[2020-09-13 08:19] LABS: HCT 38.9 % (39.0-53.0); HGB 12.9 gm/dL (13.0-17.5); MCH 31.8 pg (25.0-35.0); MCHC 33.1 g/dL (31.0-37.0); MCV 96.2 fL (80.0-100.0); Mean Platelet Volume 7.9; Platelet Count 242 k/uL (150-450); RBC 4.05 m/uL (4.30-5.90); RDW 14.2 % (11.5-15.5)
[2020-09-13 08:35] LABS: African American GFR (CKD) >90 (>60 ml/min/1.73 sqM); Anion Gap 6 mmol/L; Blood Urea Nitrogen 20 mg/dL (9-20); Calcium 8.9 mg/dL (8.4-10.2); Carbon Dioxide 23 mmol/L (22-30); Chloride 109 mmol/L (98-107); Glucose 105 mg/dL (74-99); Non-African American GFR(CKD) 79 (>60 ml/min/1.73 sqM); Potassium 4.2 mmol/L (3.5-5.1); Sodium 138 mmol/L (137-145)
[2020-09-13] MEDS ORDERED: VERAPAMIL 2.5 MG/ML 2 ML AMP ONE (09:01)
[2020-09-13] MEDS ORDERED: fentaNYL (PF) 50 MCG/ML 2 ML AMP ONE (09:02)
[2020-09-13] MEDS ORDERED: LIDOCAINE 1% INJ 10MG/ML (20 ML MDV) ONE (09:02)
[2020-09-13] MEDS ORDERED: HEPARIN SODIUM 1,000 UN/ML (10ML VL) ONE (09:02)
[2020-09-13] MEDS ORDERED: fentaNYL (PF) 50 MCG/ML 2 ML AMP IV ONE (09:23)
[2020-09-13] MEDS ORDERED: IV FLUID CONTINUATION 700 ML IV ONE (09:24)
[2020-09-13] MEDS ORDERED: LIDOCAINE 1% INJ 10MG/ML (20 ML MDV) SQ ONE (09:26)
[2020-09-13] MEDS ORDERED: MIDAZOLAM 2 MG/2 ML VIAL IV ONE (09:27)
[2020-09-13] MEDS ORDERED: HEPARIN SODIUM 1,000 UN/ML (10ML VL) IV ONE (09:30)
[2020-09-13] MEDS ORDERED: CLOPIDOGREL 75 MG TAB ONE (09:30)
[2020-09-13] MEDS ORDERED: CLOPIDOGREL 75 MG TAB PO ONE (09:31)
[2020-09-13] MEDS ORDERED: NITROGLYCERIN 1000MCG/10ML SYRINGE INTRACORON ONE (09:46)
[2020-09-13] MEDS ORDERED: IOPAMIDOL-370 125ML BTL INJ ONE (09:58)
[2020-09-13] MEDS ORDERED: ZOLPIDEM 5 MG TAB PO PRN (10:10)
[2020-09-13] MEDS ORDERED: RX INFO: IV CONTRAST WAS GIVEN 1 EACH MISC MISCELLANE PRN (10:10)
[2020-09-13] MEDS ORDERED: ATROPINE SULFATE 0.1 MG/ML 10ML SYRINGE IV PRN (10:10)
[2020-09-13] MEDS ORDERED: MAG HYDROX/AL HYDROX/SIMETH 30 ML CUP PO PRN (10:10)
[2020-09-13] MEDS ORDERED: NITROGLYCERIN SL TABS 0.4 MG TAB SUBLINGUAL PRN (10:10)
[2020-09-13] MEDS ORDERED: SODIUM CHLORIDE 0.9% 1,000 ML IV SCH (10:15)
[2020-09-13 11:31] VITALS: BMI 31.6
[2020-09-13] MEDS: ACETAMINOPHEN TAB 325 MG TAB PO PRN (11:33)
--- NOTE | 2020-09-13 11:33 | CC ---
CARDIAC CATHETERIZATION REPORT Mr. Nina is a 50-year-old male with known history of coronary artery disease who presented with myocardial infarction in 2017, underwent stenting of the right coronary artery. Subsequently has stopped all his medication and has not been followed. He came into the hospital with symptoms of chest discomfort and troponin elevation. He underwent cardiac catheterization by Dr. Tamayo and was found to have a totally occluded proximal right coronary artery with collaterals from the left system. In view of that, recommendation regarding coronary angioplasty and stenting. The procedure as well as the risks and the complications were discussed with the patient who is in full understanding and agreement. PROCEDURE: Patient was brought to hospital laboratory technician in a fasting state after receiving fentanyl and Benadryl and achieving moderate conscious sedated state. Using Xylocaine anesthesia and Seldinger technique, a 6-Kenyan sheath was introduced in the right femoral artery. Selective right coronary angiography performed using 6-Kenyan FR4 guiding catheter. After cannulating the right coronary ostium a 0.014 balanced medium weight J-wire with the help of a straight super cross microcatheter were introduced across the total occlusion and positioned distally. The microcatheter was removed and a 2.25 x 15 mm Trek balloon was advanced. Multiple inflations at a maximum of 8 atmospheres were done. Following that, the balloon was removed and a 2.5 x 12 mm NC Trek balloon was advanced and inflation maximum of 14 atmospheres was done. After the last inflation, the balloon was removed and a 2.5 x 38 mm Xience Elvis point stent was advanced, deployed and post dilated at 16 atmospheres. After the last inflation, after appropriate wait, the balloon and the guidewire were withdrawn back in the guiding catheter. Images were obtained and repeated. Those images reveal stable successful stenting. At that point, the guiding catheter, the balloon and the guidewire were removed. The sheath was removed. Hemostasis was obtained with deployment of an Angio-Seal. There was no immediate complication. Patient was returned to his room in stable condition. Of note, the patient received 7000 units of intravenous heparin as well as oral loading dose of clopidogrel. He had no significant chest pain or EKG changes with the inflations. RESULTS: Successful stenting of the proximal totally occluded right coronary artery with reduction of stenosis from 100% to 0%. RECOMMENDATIONS: Patient will be continued on aspirin, Plavix, beta blockers, daniel inhibitors and statin. The importance of dual antiplatelet treatment as well as compliance was discussed with the patient and he is full understanding and agreement. Duration of sedation is 33 minutes. MMODL / IJN: [id number] /
--- NOTE | 2020-09-13 14:26 | P.PN ---
Subjective Progress Note Date: 09/13/20 Patient is a pleasant 50-year-old male came in with complaints of chest pain is started after midnight around 2 AM in the morning woke up in the middle of the night chest pain is pressure-like sensation radiating to both shoulders constant which initially lasted for an hour and went back to sleep again woke up again. Started having chest pain came to ER. Patient current chest pain is around 4/10 in severity. Patient does have history of coronary artery disease stopped taking his medications since he lost his insurance. Patient to denied any shortness of breath chest pain is nonpleuritic not associated with food no shortness of breath or denied any diaphoresis. EKG showed some acute ST-T wave changes in the inferior leads facet of troponin is elevated to 2.28. Patient continues to smoke. Chest x-ray did not show any significant abnormality 09/12/2020 Patient is evaluated bedside today awaiting cardiac catheterization. Patient states that he had a previous stent completed in 2017 however did not follow-up with any gourmet coffee attendant and did not continue taking medication due to an issue with insurance. Patient is currently not having any chest pain. Patient is a current pack-a-day smoker, he is receiving a nicotine patch. Patient states that he is in rare occasional drinker. Patient states that his grandfather had a CO at the age of 60 of them that there is no family history. Patient was started on aspirin, Lipitor, metoprolol by cardiology services. Patient is pending cardiac intervention tomorrow by Dr. JED Maria for a total occlusion of the RCA. Echocardiogram shows ejection fraction of 55-60%. 09/13/2020 Patient is evaluated the bedside after returning from history cardiac catheterization. Patient had a stent placed to his RCA. Patient will be started on Plavix, aspirin, Lipitor, metoprolol. Patient will follow up with [facility] in the office upon discharge. Patient denies any chest pain, cough, short of breath. Plans for discharge tomorrow. Patient will remain on telemetry, and monitor overnight. Vital signs remain stable at this time, blood pressure 137/89. Patient is counseled again on smoking cessation. ROS: Constitutional: Denied any fatigue denied any fever. Cardio vascular: denied any chest pain, palpitations Gastrointestinal denied any nausea vomiting Pulmonary: Denied any shortness of breath cough Neurologic denied any new focal deficits All inpatient medications were reviewed and appropriate changes in these medications as dictated in the interval history and assessment and plan. PHYSICAL EXAMINATION: GENERAL: The patient is alert and oriented x3, not in any acute distress. Well developed, well nourished. HEENT: Pupils are round and equally reacting to light. EOMI. No scleral icterus. No conjunctival pallor. Normocephalic, atraumatic. No pharyngeal erythema. No thyromegaly. CARDIOVASCULAR: S1 and S2 present. No murmurs, rubs, or gallops. PULMONARY: Chest is clear to auscultation, no wheezing or crackles. ABDOMEN: Soft, nontender, nondistended, normoactive bowel sounds. No palpable organomegaly. MUSCULOSKELETAL: No joint swelling or deformity. EXTREMITIES: No cyanosis, clubbing, or pedal edema. NEUROLOGICAL: Gross neurological examination did not reveal any focal deficits. SKIN: No rashes. Assessment and plan -Acute non-ST elevation myocardial infarction: Status post stent to the RCA -Hypertension - patient has been started on metoprolol 25 mg by mouth twice a day by cardiology services -Hyperlipidemia patient is started on a statin 40 mg by mouth daily -History of coronary artery disease with previous CO patient had a stent in the past to RCA in 2017 - nicotine use: Counseling was provided patient is receiving a nicotine patch DVT prophylaxis: Early ambulation. Continue to monitor patient overnight, if patient is cleared by cardiology services tomorrow, then plans for discharge tomorrow. Objective - Vital Signs Vital signs: Vital Signs Temp 98.2 F 09/13/20 08:00 Pulse 67 09/13/20 11:59 Resp 16 09/13/20 11:29 BP 137/89 09/13/20 11:59 Pulse Ox 99 09/13/20 11:29 Intake & Output 09/12/20 09/13/20 09/13/20 18:59 06:59 18:59 Intake Total 203.606 68.593 331.344 Output Total 300 Balance -96.394 68.593 331.344 Weight 94.2 kg 94.2 kg Intake: IV 250 Intake, IV Titration 203.606 68.593 81.344 Amount Heparin Sod,Pork in 0.45% 203.606 68.593 81.344 NaCl 25,000 unit In 0.45 % NaCl 1 250ml.bag @ 11. 02 UNITS/KG/HR 9.997 mls/ hr IV .Q24H [facility] Rx#: [id number] Output: Urine 300 Other: Voiding Method Urinal Urinal # Voids 1 - Labs CBC & Chem 7: 09/13/20 07:47 09/13/20 07:47 Labs: Abnormal Lab Results - Last 24 Hours (Table) 09/12/20 09/13/20 09/13/20 Range/Units 08:13 07:47 07:47 RBC 4.05 L (4.30-5.90) m/uL Hgb 12.9 L (13.0-17.5) gm/dL Hct 38.9 L (39.0-53.0) % APTT 47.2 H (22.0-30.0) sec Chloride (98-107) mmol/L Glucose (74-99) mg/dL Cholesterol 225 H (0-200) mg/dL LDL Cholesterol, Calc 161.6 H (0.0-131.0) mg/dL HDL Cholesterol 39.0 L (40.0-60.0) mg/dL 09/13/20 Range/Units 07:47 RBC (4.30-5.90) m/uL Hgb (13.0-17.5) gm/dL Hct (39.0-53.0) % APTT (22.0-30.0) sec Chloride 109 H (98-107) mmol/L Glucose 105 H (74-99) mg/dL Cholesterol (0-200) mg/dL LDL Cholesterol, Calc (0.0-131.0) mg/dL HDL Cholesterol (40.0-60.0) mg/dL Assessment and Plan Time with Patient: Greater than 30
[2020-09-14 08:27] VITALS: BP 127/79; PULSE 71; RESP 20; TEMP 98.8
[2020-09-14] MEDS: METOPROLOL TARTRATE 25 MG TAB PO SCH (08:28)
[2020-09-14] MEDS: ATORVASTATIN 40 MG TAB PO SCH (08:29)
[2020-09-14] MEDS: NICOTINE 14MG/24HR PATCH TRANSDERM SCH (08:29)
[2020-09-14] MEDS ORDERED: ASPIRIN 81 MG PO SCH (09:00)
[2020-09-14] MEDS ORDERED: CLOPIDOGREL 75 MG TAB PO SCH (09:00)
[2020-09-14 10:11] LABS: African American GFR (CKD) >90 (>60 ml/min/1.73 sqM); Anion Gap 8 mmol/L; Blood Urea Nitrogen 18 mg/dL (9-20); Calcium 9.5 mg/dL (8.4-10.2); Carbon Dioxide 26 mmol/L (22-30); Chloride 107 mmol/L (98-107); Glucose 113 mg/dL (74-99); Non-African American GFR(CKD) 78 (>60 ml/min/1.73 sqM); Potassium 3.9 mmol/L (3.5-5.1); Sodium 141 mmol/L (137-145)
--- NOTE | 2020-09-14 11:38 | P.DS ---
Providers Date of admission: 09/11/20 13:55 Attending physician: Chandrakant Meza Consults: 09/11/20 13:44 Consult Physician Urgent Consulting Provider: Michelle Coburn Consult Reason/Comments: NSTEMI Do you want consulting provider notified?: Already Contacted 09/13/20 10:10 Consult Physician Routine Consulting Provider: Michelle Coburn Consult Reason/Comments: Post Interventional patient Do you want consulting provider notified?: Already Contacted Primary care physician: Stated None Hospital Course: Final diagnosis -Acute non-ST elevation myocardial infarction: Status post stent to the RCA patient will continue on aspirin and Plavix -Hypertension - patient has been started on metoprolol 25 mg by mouth twice a day by cardiology services -Hyperlipidemia patient is started on a statin 40 mg by mouth daily -History of coronary artery disease with previous AR patient had a stent in the past to RCA in 2017 - nicotine use: Counseling was provided patient is receiving a nicotine patch Discharge disposition Patient is discharged home with follow-up care in stable condition. Patient is educated on a cardiac diet, patient will follow-up with Dr. Moore in the office status post stent to the RCA. Patient is discharged home nicotine patch, counseled on smoking cessation. Patient does not have a primary care provider, patient was given a discharge, patient is to follow up within 2-3 days. Hospital course Patient is a pleasant 50-year-old male came in with complaints of chest pain is started after midnight around 2 AM in the morning woke up in the middle of the night chest pain is pressure-like sensation radiating to both shoulders constant which initially lasted for an hour and went back to sleep again woke up again. Started having chest pain came to ER. Patient current chest pain is around 4/10 in severity. Patient does have history of coronary artery disease stopped taking his medications since he lost his insurance. Patient had a stent in 2017 to the RCA, never follow-up with a primary care provider or a pipe cleaner. Patient to denied any shortness of breath chest pain is nonpleuritic not associated with food no shortness of breath or denied any diaphoresis. EKG showed some acute ST-T wave changes in the inferior leads facet of troponin is elevated to 2.28, 3.460. Patient continues to smoke. Chest x-ray did not show any significant abnormality. Patient's cholesterol panel revealed a total cholesterol level 225, LDL of 161, HDL 39. Patient has been started on Lipitor. Educated on her healthy diet. Echocardiogram revealed an ejection fraction of 55-60%, mild mitral regurgitation, trace tricuspid regurgitation. Patient was taken for a heart cath on 09/12 which showed a lesion to the RCA, patient was taken back to the lab technician on 09/13 and intervention was performed. Patient will be discharged home on aspirin, Plavix, Lipitor, metoprolol. Patient was given a prescription for sublingual nitroglycerin, and nicotine patch. 09/13/2030 Patient is evaluated to the bedside. Patient states he is anxious to go home. Patient has been evaluated by cardiology services who is cleared patient for discharge. Patient denies any chest pain, cough, shortness of breath. Patient states that he has been ambulating without difficulty. Patient is understanding of his current medications and the importance of following up with a primary provider, and pipe cleaner. Patient is given a prescription for nicotine patches, counseling on smoking cessation. Patient will continue with a cardiac diet. Vital signs are stable today with a blood pressure 127/79, heart rate 71. Patient remains on room air and has been afebrile this admission. Patient's metabolic panel today is within normal limits. see list of medication reconciliation for a list of current medications. Patient Condition at Discharge: Stable Plan - Discharge Summary Discharge Rx Participant: No New Discharge Prescriptions: New Nicotine 14Mg/24Hr Patch [Habitrol] 1 patch TRANSDERM DAILY #30 patch Atorvastatin [Lipitor] 40 mg PO DAILY #30 tab Nitroglycerin Sl Tabs [Nitrostat] 0.4 mg SUBLINGUAL Q5M PRN #30 tab PRN Reason: Chest Pain Clopidogrel [Plavix] 75 mg PO DAILY #30 tab Aspirin 81 mg PO DAILY #30 chew Metoprolol Tartrate [Lopressor] 25 mg PO BID #30 tab Discharge Medication List Aspirin 81 mg PO DAILY #30 chew 09/14/20 [Rx] Atorvastatin [Lipitor] 40 mg PO DAILY #30 tab 09/14/20 [Rx] Clopidogrel [Plavix] 75 mg PO DAILY #30 tab 09/14/20 [Rx] Metoprolol Tartrate [Lopressor] 25 mg PO BID #30 tab 09/14/20 [Rx] Nicotine 14Mg/24Hr Patch [Habitrol] 1 patch TRANSDERM DAILY #30 patch 09/14/20 [Rx] Nitroglycerin Sl Tabs [Nitrostat] 0.4 mg SUBLINGUAL Q5M PRN #30 tab 09/14/20 [Rx] Follow up Appointment(s)/Referral(s): Yonas Moore MD [STAFF PHYSICIAN] - 1 Week None,Stated [Primary Care Provider] - 1-2 days Nacho Gavin MD [REFERRING] - 1 Week Activity/Diet/Wound Care/Special Instructions: Activity Limited until follow up Continue cardiac diet Patient will follow up with the PCP given, or may choose his own. I suggest follow-up with PCP within the next 2-3 days. Patient will follow-up with Dr. Moore office. Discharge Disposition: HOME SELF-CARE
--- NOTE | 2020-09-14 13:21 | P.PN ---
Subjective Progress Note Date: 09/14/20 HISTORY OF PRESENT ILLNESS: Patient examined this with bedside. Patient is status post cardiac catheterization with PCI to the RCA. Patient denies chest pain or pressure. Denies risk breath. Vital signs are stable. He is hoping to be discharged home today. PHYSICAL EXAM: VITAL SIGNS: Reviewed. GENERAL: Well-developed in no acute distress. NECK: Supple. No JVD or thyromegaly LUNGS: Respirations even and unlabored. Lungs essentially clear to auscultation bilaterally. HEART: Regular rate and rhythm. S1 and S2 heard. EXTREMITIES: Normal range of motion. No clubbing or cyanosis. Peripheral pulses intact. No lower extremity edema ASSESSMENT: NSTEMI Coronary artery disease status post PCI to the proximal and mid RCA in 2017 in setting of NSTEMI Chronic nicotine dependence Dyslipidemia Hypertension. PLAN: Continue current cardiac medications. Patient is stable for discharge home today from a cardiac standpoint he is to follow up on an outpatient basis Nurse practitioner note has been reviewed by physician. Signing provider agrees with the documented findings, assessment, and plan of care. Objective - Vital Signs Vital signs: Vital Signs Temp 98.8 F 09/14/20 08:00 Pulse 71 09/14/20 08:00 Resp 20 09/14/20 08:00 BP 127/79 09/14/20 08:00 Pulse Ox 96 09/14/20 08:00 Intake & Output 09/13/20 09/14/20 09/14/20 18:59 06:59 18:59 Intake Total 571.344 100 Output Total 375 Balance 196.344 100 Weight 94.2 kg 85.139 kg Intake: IV 250 Intake, IV Titration 81.344 Amount Heparin Sod,Pork in 0.45% 81.344 NaCl 25,000 unit In 0.45 % NaCl 1 250ml.bag @ 11. 02 UNITS/KG/HR 9.997 mls/ hr IV .Q24H [facility] Rx#: [id number] Oral 240 100 Output: Urine 375 Other: Voiding Method Urinal Urinal # Voids 1 1 - Labs CBC & Chem 7: 09/13/20 07:47 09/14/20 09:33 Labs: Abnormal Lab Results - Last 24 Hours (Table) 09/14/20 Range/Units 09:33 Glucose 113 H (74-99) mg/dL
== END 2020-09-14 12:15 | disposition home or self-care (01) | DRG 247 ==
LOC: EC 11:18 → 3SCARD 13:55
PROVIDERS: ADMIT Internal Medicine; ATTEND Internal Medicine
PROC: 4A023N7 Measurement of Cardiac Sampling and Pressure, Left Heart, Percutaneous Approach (ICD-10-PCS; 2020-09-12)
PROC: B2111ZZ Fluoroscopy of Multiple Coronary Arteries using Low Osmolar Contrast (ICD-10-PCS; 2020-09-12)
PROC: 027034Z Dilation of Coronary Artery, One Artery with Drug-eluting Intraluminal Device, Percutaneous Approach (ICD-10-PCS; principal; 2020-09-13 09:00)
DX: I21.4 Non-ST elevation (NSTEMI) myocardial infarction (principal); E78.5 Hyperlipidemia, unspecified; I25.119 Atherosclerotic heart disease of native coronary artery with unspecified angina pectoris; F17.210 Nicotine dependence, cigarettes, uncomplicated; F32.9 Major depressive disorder, single episode, unspecified; M51.36 Other intervertebral disc degeneration, lumbar region; F43.10 Post-traumatic stress disorder, unspecified; F31.9 Bipolar disorder, unspecified; I10 Essential (primary) hypertension; I08.1 Rheumatic disorders of both mitral and tricuspid valves; I25.2 Old myocardial infarction; Z79.82 Long term (current) use of aspirin; Z20.822 Contact with and (suspected) exposure to COVID-19; Z79.899 Other long term (current) drug therapy; Z86.73 Personal history of transient ischemic attack (TIA), and cerebral infarction without residual deficits; Z71.6 Tobacco abuse counseling; Z87.19 Personal history of other diseases of the digestive system; Z87.11 Personal history of peptic ulcer disease; Z88.5 Allergy status to narcotic agent
CPT/HCPCS: 36415; 71046; 80048; 80053; 80061; 83735; 83880; 84484; 85025; 85027; 85379; 85610; 85730; 87635; 93005; 93306; 93454; 96360; 96361; 96365; 96367; 99291